=== PATIENT | female | born 1970 | race Caucasian/White ===

== ENCOUNTER 2017-01-27 07:24 | Day surgery (SDC) | payer MEDICAID ==
[~2017-01-27 07:24] MED LIST: Lactated Ringers 1,000 ML IV SCH; Lidocaine 1%/Sod Bicarbonate in NS 8.4% 1 ML Syringe IV PRN; Sodium Chloride 0.9% 10 ML Syringe FLUSH PRN
[2017-01-27] MEDS ORDERED: Scopolamine 1.5 MG Transdermal Patch TOP ONE (07:46)
[2017-01-27] MEDS ORDERED: Propofol 200 MG/20 ML SDV ONE ×3 (07:54→08:48)
[2017-01-27] MEDS ORDERED: Rocuronium 50 MG/5 ML Vial ONE (07:54)
[2017-01-27] MEDS ORDERED: Ondansetron 4 MG/2 ML SDV ONE (07:54)
[2017-01-27] MEDS ORDERED: Midazolam 1 MG/ML 2 ML SDV ONE (07:54)
[2017-01-27] MEDS ORDERED: fentaNYL 250 MCG/5 ML SDV ONE ×2 (07:54→09:12)
[2017-01-27] MEDS ORDERED: Lidocaine 1% 4 ML ONE (07:54)
[2017-01-27] MEDS ORDERED: diphenhydrAMINE 50 MG/ML SDV ONE (07:55)
[2017-01-27] MEDS ORDERED: Ketorolac 30 MG/ML SDV ONE (07:55)
[2017-01-27] MEDS ORDERED: Dexamethasone 4 MG/ML 5 ML MDV ONE (07:55)
[2017-01-27] MEDS ORDERED: Lidocaine 1% with EPINEPHrine 1:100,000 20 ML MDV ONE (07:55)
[2017-01-27] MEDS ORDERED: Bupivacaine 0.5% 30 ML SDV ONE (07:55)
[2017-01-27] MEDS ORDERED: Sodium Chloride 0.9% 50 ML SDV ONE (07:55)
[2017-01-27] MEDS ORDERED: ceFAZolin 1 GM Vial ONE (08:02)
--- NOTE | 2017-01-27 08:03 | PCM.PREANE ---
Preanesthetic Assessment - Anesthesia/Transfusion/Family Hx Anesthesia History: Prior Anesthesia Reaction Type of Anesthesia Reaction: Excessive Nausea/Vomiting, Other (see below) (slow wake up Pt is not aware of any MH history) Family History of Anesthesia Reaction: No Transfusion History: No Prior Transfusion(s) - Review of Systems General: No Symptoms Pulmonary: No Symptoms Cardiovascular: No Symptoms Gastrointestinal: No symptoms Neurological: No Symptoms Other: Reports: Easy Bruising, Diabetes - Physical Assessment NPO Status Date: 01/26/17 NPO Status Time: 22:30 Pulse: 82 O2 Sat by Pulse Oximetry: 97 Respiratory Rate: 16 Blood Pressure: 132/83 Temperature: 36.8 C Vital Signs: Last Vital Signs Temp 36.8 C 01/27/17 07:40 Pulse 82 01/27/17 07:40 Resp 16 01/27/17 07:40 BP 132/83 01/27/17 07:40 Pulse Ox 97 01/27/17 07:40 Height: 1.8 m Weight: 106.594 kg ASA Class: 2 Mental Status: Alert & Oriented x3 Dentition: Reports: Normal Dentition Thyro-Mental Finger Breadths: 3 Mouth Opening Finger Breadths: 3 ROM/Head Extension: Full Lungs: Clear to auscultation, Normal respiratory effort Cardiovascular: Regular Rate, Regular Rhythm, No Murmurs - Lab Values: Laboratory Last Values POC Glucose 110 mg/dL (70-105) H 01/27/17 07:46 Urine HCG, Qual Negative (NEGATIVE) 01/27/17 07:35 - Allergies Allergies/Adverse Reactions: Allergies Allergy/AdvReac Type Severity Reaction Status Date / Time fluconazole [From Diflucan] Allergy Cannot Verified 01/26/17 10:22 Remember latex Allergy Itching Verified 01/26/17 10:22 meperidine [From Demerol] Allergy Cannot Verified 01/26/17 10:22 Remember naproxen [From Aleve] Allergy Cannot Verified 01/26/17 10:22 Remember iv dye Allergy Cannot Uncoded 01/26/17 10:22 Remember - Anesthesia Plan Pre-Op Medication Ordered: None - Acknowledgements Anesthesia Type Planned: General Anesthesia Pt an Appropriate Candidate for the Planned Anesthesia: Yes Alternatives and Risks of Anesthesia Discussed w Pt/Guardian: Yes Pt/Guardian Understands and Agrees with Anesthesia Plan: Yes PreAnesthesia Questionnaire HEENT History: Reports: Impaired vision, Other (see below) Other HEENT History: WEARS GLASSES Cardiovascular History: Reports: None Respiratory History: Reports: None Gastrointestinal History: Reports: Irritable bowel syndrome Genitourinary History: Reports: Renal calculus, Other (see below) Other Genitourinary History: 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: , Other (see below) Other OB/BYN History: DYSPAREUNIA, DYSMENORRHEA, LAPAROSCOPY X2, ESSURE PROCEDURE, ADENOMYOSIS, IRREGULAR MENSES, PELVIC PAIN Musculoskeletal History: Reports: Fibromyalgia, Other (see below) Other Musculoskeletal History: R ELBOW FRACTURE, BILATERAL ARM FRACTURES, KNEE ARTHROSCOPY L AND R X2, PATELLAR RECONSTRUCTION Neurological History: Reports: Neuropathy, diabetic, Seizure Psychiatric History: Reports: Depression Endocrine/Metabolic History: Reports: Diabetes, gestational, Diabetes, type II Hematologic History: Reports: None Immunologic History: Reports: None Oncologic (Cancer) History: Reports: None Dermatologic History: Reports: None - Past Surgical History HEENT Surgical History: Reports: Tonsillectomy GI Surgical History: Reports: Colonoscopy, EGD Female Surgical History: Reports: section Musculoskeletal Surgical History: Reports: Arthroscopic knee, Arthroscopic procedure - SUBSTANCE USE Smoking Status *Q: Former Smoker Tobacco Use Within Last Twelve Months: No Second Hand Smoke Exposure: Yes Days Per Week of Alcohol Use: 0 Number of Drinks Per Day: 0 Total Drinks Per Week: 0 Recreational Drug Use History: No - HOME MEDS Home Medications: Home Meds Chlorzoxazone [Parafon Forte] 500 mg PO BID 01/26/17 [History] Gabapentin [Gabapentin] 800 mg PO BID 01/26/17 [History] Insulin Aspart [NovoLOG] 1 unit SQ TIDAC 01/26/17 [History] Insulin Glarg,Human.Rec.Analog [LantUS Solostar] 45 units SQ BID 01/26/17 [ History] Ondansetron [Zofran Odt] 8 mg PO TID PRN 01/26/17 [History] metFORMIN HCl [Metformin HCl ER] 1,000 mg PO BEDTIME 01/26/17 [History] - CURRENT (IN HOUSE) MEDS Current Meds: Current Medications Lactated Ringer's (Ringers, Lactated) 1,000 mls @ 125 mls/hr IV ASDIRECTED ASHA Stop: 01/27/17 23:00 Lidocaine/Sodium Bicarbonate (Buffered Lidocaine 1% In Ns 8.4%) 0.25 ml IV ONETIME PRN PRN Reason: Prior to IV Start Stop: 01/27/17 18:00 Sodium Chloride (Saline Flush) 10 ml FLUSH ASDIRECTED PRN PRN Reason: Keep Vein Open Stop: 01/27/17 18:00 Discontinued Medications Cefazolin Sodium (Ancef) Confirm Administered Dose 2 gm .ROUTE .STK-MED ONE Stop: 01/27/17 08:03 Dexamethasone (Dexamethasone) Confirm Administered Dose 20 mg .ROUTE .STK-MED ONE Stop: 01/27/17 07:56 Diphenhydramine HCl (Benadryl) Confirm Administered Dose 50 mg .ROUTE .STK-MED ONE Stop: 01/27/17 07:56 Fentanyl (Sublimaze) Confirm Administered Dose 250 mcg .ROUTE .STK-MED ONE Stop: 01/27/17 07:55 Lidocaine HCl (Xylocaine-Mpf 1%) Confirm Administered Dose 4 mls @ as directed .ROUTE .STK-MED ONE Stop: 01/27/17 07:55 Ketorolac Tromethamine (Toradol) Confirm Administered Dose 30 mg .ROUTE .STK- MED ONE Stop: 01/27/17 07:56 Midazolam HCl (Versed 1 Mg/Ml) Confirm Administered Dose 2 mg .ROUTE .STK-MED ONE Stop: 01/27/17 07:55 Ondansetron HCl (Zofran) Confirm Administered Dose 4 mg .ROUTE .STK-MED ONE Stop: 01/27/17 07:55 Propofol (Diprivan 20 Ml) Confirm Administered Dose 200 mg .ROUTE .STK-MED ONE Stop: 01/27/17 07:55 Rocuronium Ewing (Zemuron) Confirm Administered Dose 50 mg .ROUTE .STK-MED ONE Stop: 01/27/17 07:55 Scopolamine (Transderm-Scop) 1.5 mg TOP ONETIME ONE Stop: 01/27/17 07:47 Preanesthetic Assessment - PHYSICAL ASSESSMENT O2 Sat by Pulse Oximetry: 97 RR: 16 Vital Signs: Last Vital Signs Temp 36.8 C 01/27/17 07:40 Pulse 82 01/27/17 07:40 Resp 16 01/27/17 07:40 BP 132/83 01/27/17 07:40 Pulse Ox 97 01/27/17 07:40 Height: 1.8 m Weight: 106.594 kg NPO Status Date: 01/26/17 NPO Status Time: 22:30 - LAB Values: Laboratory Last Values POC Glucose 110 mg/dL (70-105) H 01/27/17 07:46 Urine HCG, Qual Negative (NEGATIVE) 01/27/17 07:35 - ALLERGIES Allergies/Adverse Reactions: Allergies Allergy/AdvReac Type Severity Reaction Status Date / Time fluconazole [From Diflucan] Allergy Cannot Verified 01/26/17 10:22 Remember latex Allergy Itching Verified 01/26/17 10:22 meperidine [From Demerol] Allergy Cannot Verified 01/26/17 10:22 Remember naproxen [From Aleve] Allergy Cannot Verified 01/26/17 10:22 Remember iv dye Allergy Cannot Uncoded 01/26/17 10:22 Remember
[2017-01-27] MEDS ORDERED: HYDROmorphone 1 MG/ML Syringe ONE (08:56)
[2017-01-27] MEDS ORDERED: Lactated Ringers 1,000 ML ONE (09:11)
[2017-01-27] MEDS ORDERED: Ondansetron 4 MG/2 ML SDV IVPUSH PRN (09:18)
[2017-01-27] MEDS ORDERED: Acetaminophen/oxyCODONE 325-5 MG Tab PO PRN (09:18)
--- NOTE | 2017-01-27 09:24 | PCM.OPNOTE ---
- General Post-Op/Procedure Note Date of Surgery/Procedure: 01/27/17 Operative Procedure(s): Total vaginal hysterectomy bilateral salpingectomy Findings: Uterus is upper limits normal size, ovaries appeared normal bilaterally. Patient had a essure devices in each fallopian tube. Fallopian tubes otherwise appeared normal. Pre Op Diagnosis: Dysmenorrhea, dyspareunia, pelvic pain Post-Op Diagnosis: Same Anesthesia Technique: General ET tube Other Anesthesia Type: Lidocaine quarter percent with epinephrine-20 cc locally Primary Surgeon: Jamal Paula Secondary Surgeon: Whitney Peralta Anesthesia Provider: Kt Ramey Dryland Farmer: Zulma Jimenez Pathology: Uterus, bilateral fallopian tubes sent in one container. Fluid Replacement, Intraop: 1,500 EBL in mLs: 30 Complications: None Condition: Good Free Text/Narrative:: Surgery duration: 25 minutes Complications: None Condition: Good Procedure: The patient was taken to the operating room. She was placed in supine position on the operating table. General endotracheal anesthesia and was accomplished. Patient was given Ancef 2 g IV preop for infection prophylaxis and had sequential compression stockings in place for DVT prophylaxis. After positioning prep and drape were accomplished in a routine fashion. The patient was then operated upon. Sterile weighted speculum was placed in the vagina and cervix was visualized. Cervix was injected with lidocaine quarter percent with epinephrine-20 cc total. A full circumference incision was made through the cervical epithelium and cervical epithelium was pushed well back off the cervix. Posterior cul-de-sac was entered sharply. The left uterosacral ligament was then crossclamped with a LigaSure vessel closure system. This is developed in routine fashion. Same was done on the right side. Anterior cul-de-sac was then entered without problems. The uterine vasculature, remainder of cardinal ligament, broad ligament and eventually fallopian tube and upper broad ligament pedicles were then developed using LigaSure vessel closure system. At this time the fallopian tube on the left side was isolated and using LigaSure vessel closure system meso-salpinx was cauterized. This effectively removed the fallopian tube, leaving the ovary in place. Same was then done on the side. Hemostasis was confirmed at this time. Sponge instrument and needle counts are correct. The pursestring suture of 0 Monocryl was then used to close the peritoneal cavity. The vaginal cuff was closed with a running locked suture from right side to left side with 0 Monocryl suture. At this time hemostasis confirmed. Sponge, instrument and needle counts were correct. The patient was returned to supine position and awakened from general endotracheal anesthesia. She tolerated the procedure well and left the operating room in good condition.
--- NOTE | 2017-01-27 09:30 | PCM.POSTAN ---
POST ANESTHESIA ASSESSMENT - MENTAL STATUS Mental Status: alert, oriented - VITAL SIGNS Pulse Rate: 91 SaO2: 99 Resp Rate: 14 Blood Pressure: 113/45 Temperature: 36.1 C - RESPIRATORY Respiratory Status: respiratory rate WNL, airway patent, O2 saturation stable - CARDIOVASCULAR CV Status: pulse rate WNL, blood pressure stable - GASTROINTESTINAL GI Status: no symptoms - PAIN Pain Score: 0 - POST OP HYDRATION Hydration Status: adequate & stable - OBSERVATIONS Free Text/Narrative:: no anesthesia complications noted
[2017-01-27] MEDS: HYDROmorphone 0.5 MG/0.5 ML Syringe IVPUSH PRN ×2 (09:55→10:10)
[2017-01-27] MEDS ORDERED: diphenhydrAMINE 50 MG/ML SDV IVPUSH SCH (10:15)
[2017-01-27] MEDS ORDERED: fentaNYL 100 MCG/2 ML SDV IVPUSH PRN (10:30)
[2017-01-27 11:32] VITALS: BP 120/61
== END 2017-01-27 12:00 | disposition home or self-care (01) ==
LOC: JD.SDS 07:24
PROVIDERS: ATTEND Obstetrics & Gynecology
DX: N72 Inflammatory disease of cervix uteri (principal); N83.8 Other noninflammatory disorders of ovary, fallopian tube and broad ligament; N85.8 Other specified noninflammatory disorders of uterus; F32.9 Major depressive disorder, single episode, unspecified; E11.9 Type 2 diabetes mellitus without complications; Z88.8 Allergy status to other drugs, medicaments and biological substances; Z91.040 Latex allergy status; Z91.041 Radiographic dye allergy status; Z79.899 Other long term (current) drug therapy; Z98.890 Other specified postprocedural states; Z96.659 Presence of unspecified artificial knee joint; Z87.891 Personal history of nicotine dependence
CPT/HCPCS: 36415; 58262; 81025; 82962; 86850; 86900; 86901; A9270; J0690; J1100; J1170; J1200; J1885; J2250; J2405; J3010; J7120; 00944; J2704

== ENCOUNTER 2017-02-01 00:30 | Inpatient (IN) | payer MEDICAID, SELFPAY ==
[~2017-02-01 00:30] MED LIST changes: +Dextrose 5%-0.45% NaCl 1,000 ML IV SCH; -Lactated Ringers 1,000 ML IV SCH; -Lidocaine 1%/Sod Bicarbonate in NS 8.4% 1 ML Syringe IV PRN; -Sodium Chloride 0.9% 10 ML Syringe FLUSH PRN
--- NOTE | 2017-02-01 00:53 | EDM.PDOC ---
ED HPI GI/ABDOMINAL - General Chief Complaint: Abdominal Pain Stated Complaint: [facility] Time Seen by Provider: 02/01/17 00:43 - History of Present Illness INITIAL COMMENTS - FREE TEXT/NARRATIVE: 46-year-old female brought in by [facility] as a transfer from the [facility] and [place]. Chief complaint: Abdominal pain Patient developed severe abdominal pain early on Thursday. She has a significant history of having a vaginal hysterectomy on Thursday of this last week at this hospital. The patient has had mild spotting after the surgery and has had some pain that has been fairly well controlled. Today the pain has been poorly controlled she presented to the [facility] and [place] with severe pain. The patient received 4 mg of morphine and Andrew followed by 22 mg doses of Dilaudid without pain relief. CAT scan examination without contrast do to IV allergy was unremarkable other than postop changes. Laboratory evaluation is unrevealing except for a minimally elevated white count. The patient has multiple medical problems. - Related Data Allergies/ADRs: Allergies Allergy/AdvReac Type Severity Reaction Status Date / Time fluconazole [From Diflucan] Allergy Cannot Verified 01/26/17 10:22 Remember latex Allergy Itching Verified 01/26/17 10:22 meperidine [From Demerol] Allergy Cannot Verified 01/26/17 10:22 Remember naproxen [From Aleve] Allergy Cannot Verified 01/26/17 10:22 Remember iv dye Allergy Cannot Uncoded 01/26/17 10:22 Remember Home Meds: Home Meds Chlorzoxazone [Parafon Forte] 500 mg PO BID 01/26/17 [History] Gabapentin 800 mg PO BID 01/26/17 [History] Insulin Aspart [NovoLOG] 1 unit SQ TIDAC 01/26/17 [History] Insulin Glarg,Human.Rec.Analog [LantUS Solostar] 45 units SQ BID 01/26/17 [ History] Ondansetron [Zofran Odt] 8 mg PO TID PRN 01/26/17 [History] metFORMIN HCl [Metformin HCl ER] 1,000 mg PO BEDTIME 01/26/17 [History] Acetaminophen/oxyCODONE [Percocet 325-5 MG] 2 tab PO Q4H PRN #30 tablet [Rx] Ibuprofen 600 mg PO Q4HR #30 tablet 01/27/17 [Rx] Past Medical History HEENT History: Reports: Impaired vision, Other (see below) Other HEENT History: WEARS GLASSES Cardiovascular History: Reports: None Respiratory History: Reports: None Gastrointestinal History: Reports: Irritable bowel syndrome Genitourinary History: Reports: Renal calculus, Other (see below) Other Genitourinary History: 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: , Other (see below) Other OB/BYN History: DYSPAREUNIA, DYSMENORRHEA, LAPAROSCOPY X2, ESSURE PROCEDURE, ADENOMYOSIS, IRREGULAR MENSES, PELVIC PAIN Musculoskeletal History: Reports: Fibromyalgia, Other (see below) Other Musculoskeletal History: R ELBOW FRACTURE, BILATERAL ARM FRACTURES, KNEE ARTHROSCOPY L AND R X2, PATELLAR RECONSTRUCTION Neurological History: Reports: Neuropathy, diabetic, Seizure Psychiatric History: Reports: Depression Endocrine/Metabolic History: Reports: Diabetes, gestational, Diabetes, type II Hematologic History: Reports: None Immunologic History: Reports: None Oncologic (Cancer) History: Reports: None Dermatologic History: Reports: None - Past Surgical History HEENT Surgical History: Reports: Tonsillectomy GI Surgical History: Reports: Colonoscopy, EGD Female Surgical History: Reports: section, Hysterectomy Musculoskeletal Surgical History: Reports: Arthroscopic knee, Arthroscopic procedure Social & Family History - Tobacco Use Smoking Status *Q: Former Smoker Month Tobacco Last Used: 2006 Second Hand Smoke Exposure: Yes - Alcohol Use Days Per Week of Alcohol Use: 0 Number of Drinks Per Day: 0 Total Drinks Per Week: 0 - Recreational Drug Use Recreational Drug Use: Yes Drug Use in Last 12 Months: No Recreational Drug Type: Reports: Marijuana/Hashish Recreational Drug Use Frequency: Not Used In Over 3 Months ED ROS GENERAL - Review of Systems Review Of Systems: See Below Constitutional: Denies: fever, chills Respiratory: Reports: No Symptoms Cardiovascular: Reports: No symptoms GI/Abdominal: Reports: Abdominal pain, Nausea. Denies: Constipation, Diarrhea : Reports: other (Small amount of vaginal bleeding otherwise no burning or frequency with urination) Musculoskeletal: Reports: no symptoms Skin: Reports: no symptoms Neurological: Reports: No Symptoms ED EXAM, GI/ABD - Physical Exam Exam: See Below Exam Limited By: No limitations General Appearance: alert, mild distress (From the pain but the patient seems to be doing okay at this time) Head: atraumatic, normocephalic Neck: normal inspection, supple, non-tender, full range of motion. No: lymphadenopathy (L), lymphadenopathy (R) Respiratory/Chest: no respiratory distress, lungs clear, normal breath sounds Cardiovascular: regular rate, rhythm, no edema, no murmur GI/Abdominal: normal bowel sounds, soft, other (She has right-sided abdominal pain and some mild left-sided lower quadrant discomfort she has expected suprapubic discomfort her) (Female) Exam: Normal external exam, Other (Economic exam is done cervix surgically absent barely visualized the closure site not a complete exam but it appears to be intact.) Back Exam: normal inspection. No: CVA tenderness (L), CVA tenderness (R) Extremities: normal inspection Course - Vital Signs Last Recorded V/S: Last Vital Signs Temp 37.1 C 02/01/17 03:35 Pulse 81 02/01/17 03:35 Resp 20 02/01/17 03:35 BP 117/73 02/01/17 03:35 Pulse Ox 96 02/01/17 03:35 - Orders/Labs/Meds Orders: Medication Orders Hydromorphone HCl (Dilaudid) 0.2 mg IVPUSH Q2H PRN PRN Reason: Pain (severe 7-10) Last Admin: 02/01/17 05:22 Dose: 0.2 mg Admin: 02/01/17 03:21 Dose: 0.2 mg Sodium Chloride (Normal Saline) 1,000 mls @ 125 mls/hr IV ASDIRECTED [facility] Last Admin: 02/01/17 03:28 Dose: 125 mls/hr Dextrose/Sodium Chloride (Dextrose 5%-1/2 Ns) 1,000 mls @ 125 mls/hr IV ASDIRECTED [facility] Last Admin: 02/01/17 06:35 Dose: 125 mls/hr Ondansetron HCl (Zofran) 4 mg IVPUSH Q8H PRN PRN Reason: Nausea/Vomiting Last Admin: 02/01/17 03:25 Dose: 4 mg Labs: Laboratory Tests 02/01/17 02/01/17 Range/Units 00:53 01:38 POC Glucose 61 L 78 (70-105) mg/dL Meds: Medications Generic Name Dose Route Start Last Admin Trade Name Freq PRN Reason Stop Dose Admin Hydromorphone HCl 0.2 mg 02/01/17 02:59 04/02/17 05:22 Dilaudid IVPUSH 0.2 mg Q2H PRN Administration Pain (severe 7-10) Sodium Chloride 1,000 mls @ 125 mls/hr 02/01/17 03:15 02/01/17 03:28 Normal Saline IV 125 mls/hr ASDIRECTED ASHA Administration Dextrose/Sodium Chloride 1,000 mls @ 125 mls/hr 02/01/17 06:30 02/01/17 06:35 Dextrose 5%-1/2 Ns IV 125 mls/hr ASDIRECTED ASHA Administration Ondansetron HCl 4 mg 02/01/17 02:59 02/01/17 03:25 Zofran IVPUSH 4 mg Q8H PRN Administration Nausea/Vomiting Discontinued Medications Generic Name Dose Route Start Last Admin Trade Name Freq PRN Reason Stop Dose Admin Fentanyl 50 mcg 02/01/17 01:16 02/01/17 01:58 Sublimaze IVPUSH 02/01/17 01:17 50 mcg ONETIME ONE Administration Dextrose/Sodium Chloride 1,000 mls @ 125 mls/hr 02/01/17 00:30 Dextrose 5%-1/2 Ns IV ASDIRECTED ASHA Ondansetron HCl 4 mg 02/01/17 01:16 02/01/17 01:30 Zofran IVPUSH 02/01/17 01:17 4 mg ONETIME ONE Administration - Re-Assessments/Exams Free Text/Narrative Re-Assessment/Exam: 02/01/17 01:23 Chart reviewed labs nonrevealing abdominal CT without contrast was done which shows a left-sided to centimeter ovarian cyst otherwise no acute changes post surgical changes noted. Exam reveals right-sided vague abdominal discomfort that tends to radiate into her pelvis. Pelvic exam nonrevealing suture line with difficulty was partially visualized small amount of clot small amount of bleeding noted. Case discussed with Dr. Peralta who will come in and evaluate the patient. Departure - Departure Time of Disposition: 01:30 Disposition: Admitted As Inpatient 68 Clinical Impression: Abdominal pain, History of hysterectomy
[2017-02-01] MEDS ORDERED: fentaNYL 100 MCG/2 ML SDV IVPUSH ONE ×2 (01:16→22:30)
[2017-02-01] MEDS ORDERED: Ondansetron 4 MG/2 ML SDV IVPUSH ONE (01:16)
[2017-02-01] MEDS ORDERED: Sodium Chloride 0.9% 1,000 ML IV SCH (03:15)
[2017-02-01] MEDS: HYDROmorphone 0.5 MG/0.5 ML Syringe IVPUSH PRN ×3 (03:21→07:53)
[2017-02-01] MEDS: Ondansetron 4 MG/2 ML SDV IVPUSH PRN ×3 (03:25→22:41)
--- NOTE | 2017-02-01 03:45 | PCM.HP ---
H&P History of Present Illness - General Date of Service: 02/01/17 Admit Problem/Dx: Admission Diagnosis/Problem Admission Diagnosis/Problem Postoperative pain Source of Information: Patient, EMS notes reviewed, Provider, RN notes reviewed (from [place]) History Limitations: Reports: Other (Screaming in pain) - History of Present Illness Initial Comments - Free Text/Narative: 46 year old female who underwent an uncomplicated laparoscopic assisted vaginal hysterectomy on Thursday01.27.[address] Paula with myself assisting. This was for an indication of pelvic pain and irregular bleeding that she attributed to her Essure coils. 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 She then took transit home. Says she called from the vehicle on the way to [place] with significant pain and was asked to "breath through it and call back in the morning". She then reports she called back the next morning with continued pain and was told to hang in there and alternate her ibuprofen and percocet. She states that initial postop pain was dull and achy. It bothered her but the meds helped. She had her first bowel movement (POD2). It was soft as she has been taking stool softeners. Normal BMs since. Has been passing gas normally with no issue. Thursday01.31.17 she states she woke up with some increased nausea. Did not have much appetite but drank a cup of coffee and ate a doughnut and a doughnut hole. She then did some walking and thinks she may have overdone it some. But then she began having different pain throughout the day. It was primarily sharp, right upper quadrant pain that came and went and occasionally passed to her flank. It was always associated with nausea. It felt identical to her pain when she had a ureteral stone in 2005. She presented to the ED in [place] where she received dilaudid, toradol and morphine for pain. The ER notes state that she was screaming in pain after walkin some distance across the parking lot into the ER "despite being her frequently and knowing she can be dropped off up at the door". She was admitted to observation there for pain managment. Shortly thereafter she had intractable pain and was transferred to the emergency department here. [place] labs were reviewed and normal to include a CBC and CMP. She had a non-contrast CT as she is allergic to IV dye that was normal. No abscess. Normal postop changes. Here in the ER her pain was initially "25/10" then after 50 mg fentanyl it was 12/10. Onset of Symptoms: Reports: today Symptom Onset Date: 01/31/17 Duration of Symptoms: Reports: Getting worse Location: Reports: abdomen (right upper quadrent and flank, some diffuse) Quality: Reports: Same as previous episode (similar to her ureteral stone in 2005), Sharp Improves with: Reports: None Worsens with: Reports: None Context: Reports: exertion (worse with walking) Associated Symptoms: Reports: nausea/vomiting Upper Abdomen Pain Score (Numeric/FACES): 7 - Related Data Allergies/Adverse Reactions: Allergies Allergy/AdvReac Type Severity Reaction Status Date / Time fluconazole [From Diflucan] Allergy Cannot Verified 01/26/17 10:22 Remember latex Allergy Itching Verified 01/26/17 10:22 meperidine [From Demerol] Allergy Cannot Verified 01/26/17 10:22 Remember naproxen [From Aleve] Allergy Cannot Verified 01/26/17 10:22 Remember iv dye Allergy Cannot Uncoded 01/26/17 10:22 Remember Home Medications: Home Meds Chlorzoxazone [Parafon Forte] 500 mg PO BID 01/26/17 [History] Gabapentin 800 mg PO BID 01/26/17 [History] Insulin Aspart [NovoLOG] 1 unit SQ TIDAC 01/26/17 [History] Insulin Glarg,Human.Rec.Analog [LantUS Solostar] 45 units SQ BID 01/26/17 [ History] Ondansetron [Zofran Odt] 8 mg PO TID PRN 01/26/17 [History] metFORMIN HCl [Metformin HCl ER] 1,000 mg PO BEDTIME 01/26/17 [History] Acetaminophen/oxyCODONE [Percocet 325-5 MG] 2 tab PO Q4H PRN #30 tablet [Rx] Ibuprofen 600 mg PO Q4HR #30 tablet 01/27/17 [Rx] Past Medical History HEENT History: Reports: Impaired vision, Other (see below) Other HEENT History: WEARS GLASSES Cardiovascular History: Reports: None Respiratory History: Reports: None Gastrointestinal History: Reports: Irritable bowel syndrome Genitourinary History: Reports: Renal calculus, Other (see below) Other Genitourinary History: 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: , Other (see below) Other OB/BYN History: DYSPAREUNIA, DYSMENORRHEA, LAPAROSCOPY X2, ESSURE PROCEDURE, ADENOMYOSIS, IRREGULAR MENSES, PELVIC PAIN Musculoskeletal History: Reports: Fibromyalgia, Other (see below) Other Musculoskeletal History: R ELBOW FRACTURE, BILATERAL ARM FRACTURES, KNEE ARTHROSCOPY L AND R X2, PATELLAR RECONSTRUCTION Neurological History: Reports: Neuropathy, diabetic, Seizure Psychiatric History: Reports: Depression Endocrine/Metabolic History: Reports: Diabetes, gestational, Diabetes, type II Hematologic History: Reports: None Immunologic History: Reports: None Oncologic (Cancer) History: Reports: None Dermatologic History: Reports: None - Past Surgical History HEENT Surgical History: Reports: Tonsillectomy GI Surgical History: Reports: Colonoscopy, EGD Female Surgical History: Reports: section, Hysterectomy, Kidney stone extraction (unable to fully describe but surgery for ureteral stone, no stent), Other (see below) (l/s x2 for pelvic pain, essure 2007) Musculoskeletal Surgical History: Reports: Arthroscopic knee (x2), Arthroscopic procedure, Knee replacement, Other (see below) (right arm fracture surgery) Other Surgical History Comment: 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 however 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 - Past Imaging History Past Imaging History: Reports: CAT scan Social & Family History - Tobacco Use Smoking Status *Q: Former Smoker Month Tobacco Last Used: 2006 Second Hand Smoke Exposure: Yes - Alcohol Use Days Per Week of Alcohol Use: 0 Number of Drinks Per Day: 0 Total Drinks Per Week: 0 - Recreational Drug Use Recreational Drug Use: Yes Drug Use in Last 12 Months: No Recreational Drug Type: Reports: Marijuana/Hashish Recreational Drug Use Frequency: Not Used In Over 3 Months - Living Situation & Occupation Living situation: Reports: Social History Comment: reports no family other than who "doesn't know the way here and didn't come for my hysterectomy" is a [employer] TE[employer]. H&P Review of Systems - Review of Systems: Review Of Systems: See Below General: Reports: no symptoms HEENT: Reports: no symptoms Pulmonary: Reports: No Symptoms Cardiovascular: Reports: no symptoms Gastrointestinal: Reports: Abdominal pain, Nausea. Denies: Constipation, Diarrhea Genitourinary: Denies: dysuria, frequency Musculoskeletal: Reports: no symptoms Skin: Reports: no symptoms Psychiatric: Reports: no symptoms Neurological: Reports: No Symptoms Hematologic/Lymphatic: Reports: no symptoms Immunologic: Reports: no symptoms Exam - Exam Exam: See Below - Vital Signs Vital Signs: Last Vital Signs Temp 36.2 C 02/01/17 00:32 Pulse 67 02/01/17 00:32 Resp 20 02/01/17 00:32 BP 113/64 02/01/17 00:32 Pulse Ox 98 02/01/17 00:32 Weight: 111.13 kg - Exam General: alert, oriented, cooperative, moderate distress, other (appears older than her stated age, screaming and sobbing, worse after walking) HEENT: Conjunctiva clear, EACs clear, EOMI, Hearing intact, Mucosa moist & pink , PERRLA Neck: supple, trachea midline, 2 Lungs: Clear to auscultation, Normal respiratory effort Cardiovascular: regular rate, regular rhythm Abdomen: normal bowel sounds, soft, tenderness, Jenkins's sign, other (right flank tenderness) (Female) Exam: Normal external exam, Normal speculum exam, Other (cuff appears normal, at most 5 ml old blood in vault, no suprapubic tenderness, ) Back Exam: normal inspection Extremities: 3, normal inspection, 10 Skin: warm, dry, intact Neurological: normal gait Neuro Extensive - Mental Status: alert, oriented x3, normal mood/affect, normal cognition Neuro Extensive - Motor, Sensory, Reflexes: normal gait, normal reflexes Psychiatric: alert, normal affect, normal mood - Patient Data Imaging Impressions last 24 hrs: Reviewed CT. *Q Meaningful Use (ADM) - VTE *Q VTE Criteria *Q: - Stroke *Q Stroke Criteria *Q: - AMI *Q AMI Criteria *Q: - Problem List (1) Postoperative pain SNOMED Code(s): 340482877 ICD Code: G89.18 - OTHER ACUTE POSTPROCEDURAL PAIN Status: Acute Current Visit: Yes (2) Type 2 diabetes mellitus SNOMED Code(s): 47553970 ICD Code: E11.9 - TYPE 2 DIABETES MELLITUS WITHOUT COMPLICATIONS Status: Acute Current Visit: Yes (3) Right upper quadrant abdominal pain SNOMED Code(s): 139581969 ICD Code: R10.11 - RIGHT UPPER QUADRANT PAIN Status: Acute Current Visit : Yes (4) History of kidney stones SNOMED Code(s): 630949172 ICD Code: Z87.442 - PERSONAL HISTORY OF URINARY CALCULI Status: Acute Current Visit: Yes Problem List Initiated/Reviewed/Updated: Yes Orders Last 24hrs: Active Orders 24 hr Category Date Time Status Strain Urine [RC] BID Care 02/01/17 03:05 Active Sodium Chloride 0.9% [Normal Saline] 1,000 ml Med 02/01/17 03:15 Active IV ASDIRECTED Medication Orders Hydromorphone HCl (Dilaudid) 0.2 mg IVPUSH Q2H PRN PRN Reason: Pain (severe 7-10) Last Admin: 02/01/17 03:21 Dose: 0.2 mg Sodium Chloride (Normal Saline) 1,000 mls @ 125 mls/hr IV ASDIRECTED ASHA Ondansetron HCl (Zofran) 4 mg IVPUSH Q8H PRN PRN Reason: Nausea/Vomiting Assessment/Plan Comment:: POD5 from uncomplicated LAVH now with significant pain. Imaging normal. Pain character has actually changed fairly significantly since her initial postoperative day or two. Today it is primarily right upper quadrant and some flank pain. Seem however worse after ambulating. She is very uncomfortable and will need to be admitted for further evaluation and pain control. -repeat labs in AM -consult general surgery for input and possible gall bladder dysfunction -keep NPO in event would need abd u/s -could consider repeat CT with contrast with pre medication as her reaction to IV dye is only mild itching -blood sugars q 4 hours -consider consult of hospitalist in AM for diabetes management -strain urine
[2017-02-01] MEDS ORDERED: Dextrose 5%-0.45% NaCl 1,000 ML IV SCH (06:30)
[2017-02-01] MEDS ORDERED: Ketorolac 15 MG/ML SDV IVPUSH ONE (08:32)
[2017-02-01] MEDS ORDERED: Ketorolac 30 MG/ML SDV ONE (08:33)
[2017-02-01] MEDS ORDERED: methylPREDNISolone Sodium Succinate 125 MG/2 ML SDV IVPUSH ONE (08:59)
[2017-02-01] MEDS ORDERED: diphenhydrAMINE 50 MG/ML SDV IVPUSH ONE (09:01)
[2017-02-01] MEDS ORDERED: diphenhydrAMINE 50 MG/ML SDV ONE (09:03)
--- NOTE | 2017-02-01 09:06 | PCM.CONS ---
H&P History of Present Illness - General Date of Service: 02/01/17 Admit Problem/Dx: Abdominal pain of uncertain etiology Source of Information: Patient, Old records, Provider - History of Present Illness Initial Comments - Free Text/Narative: 46 yo woman s/p vaginal hysterectomy on Thursday with Dr. Paula Transferred from [place] overnight and admitted by Dr. Peralta Had "normal" post-operative pain until Sat Sat awoke with severe RUQ pain, cramping, traveling down and towards bladder Crescendo/decrescendo, only relieved with large doses of Dilaudid Feels "exactly the same" as when she had a kidney stone in [place] She did require surgery at that time and stone was dx with IVP only and was not seen on CT per her report Labs are unremarkable, mild leukocytosis (12) but no left shift, LFTs unremarkable, UA unremarkable CT non-contrast in [place] personally reviewed - post-op change around cuff, phleboliths. Some nausea and chills when pain is bad, otherwise eating without difficulty Has had BM since surgery No association of pain with eating Denies hx of elevated serum calcium or previous testing for parathyroid adenoma Improves with: Reports: None Worsens with: Reports: None Associated Symptoms: Reports: no other symptoms Upper Abdomen Pain Score (Numeric/FACES): 7 - Related Data Allergies/Adverse Reactions: Allergies Allergy/AdvReac Type Severity Reaction Status Date / Time fluconazole [From Diflucan] Allergy Cannot Verified 01/26/17 10:22 Remember latex Allergy Itching Verified 01/26/17 10:22 meperidine [From Demerol] Allergy Cannot Verified 01/26/17 10:22 Remember naproxen [From Aleve] Allergy Cannot Verified 01/26/17 10:22 Remember iv dye Allergy Cannot Uncoded 01/26/17 10:22 Remember Home Medications: Home Meds Chlorzoxazone [Parafon Forte] 500 mg PO BID 01/26/17 [History] Gabapentin 800 mg PO BID 01/26/17 [History] Insulin Aspart [NovoLOG] 1 unit SQ TIDAC 01/26/17 [History] Insulin Glarg,Human.Rec.Analog [LantUS Solostar] 45 units SQ BID 01/26/17 [ History] Ondansetron [Zofran Odt] 8 mg PO TID PRN 01/26/17 [History] metFORMIN HCl [Metformin HCl ER] 1,000 mg PO BEDTIME 01/26/17 [History] Acetaminophen/oxyCODONE [Percocet 325-5 MG] 2 tab PO Q4H PRN #30 tablet [Rx] Ibuprofen 600 mg PO Q4HR #30 tablet 01/27/17 [Rx] Past Medical History HEENT History: Reports: Impaired vision, Other (see below) Other HEENT History: WEARS GLASSES Cardiovascular History: Reports: None Respiratory History: Reports: None Gastrointestinal History: Reports: Irritable bowel syndrome Genitourinary History: Reports: Renal calculus, Other (see below) Other Genitourinary History: 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: , Other (see below) Other OB/BYN History: DYSPAREUNIA, DYSMENORRHEA, LAPAROSCOPY X2, ESSURE PROCEDURE, ADENOMYOSIS, IRREGULAR MENSES, PELVIC PAIN Musculoskeletal History: Reports: Fibromyalgia, Other (see below) Other Musculoskeletal History: R ELBOW FRACTURE, BILATERAL ARM FRACTURES, KNEE ARTHROSCOPY L AND R X2, PATELLAR RECONSTRUCTION Neurological History: Reports: Neuropathy, diabetic, Seizure Psychiatric History: Reports: Depression Endocrine/Metabolic History: Reports: Diabetes, gestational, Diabetes, type II Hematologic History: Reports: None Immunologic History: Reports: None Oncologic (Cancer) History: Reports: None Dermatologic History: Reports: None - Past Surgical History HEENT Surgical History: Reports: Tonsillectomy GI Surgical History: Reports: Colonoscopy, EGD Female Surgical History: Reports: section, Hysterectomy (Vaginal) Musculoskeletal Surgical History: Reports: Arthroscopic knee, Arthroscopic procedure - Past Imaging History Past Imaging History: Reports: CAT scan Social & Family History - Family History Family Medical History: Noncontributory Other Family History: NO family hx of renal stones/parathyroid/thyroid or pituitary disease - Tobacco Use Smoking Status *Q: Former Smoker Used Tobacco, but Quit: Yes Month Tobacco Last Used: 2006 Second Hand Smoke Exposure: Yes - Caffeine Use Caffeine Use: Reports: None - Alcohol Use Days Per Week of Alcohol Use: 0 Number of Drinks Per Day: 0 Total Drinks Per Week: 0 - Recreational Drug Use Recreational Drug Use: Yes Drug Use in Last 12 Months: No Recreational Drug Type: Reports: Marijuana/Hashish Other Recreational Drug Type: last used over three months ago Recreational Drug Use Frequency: Not Used In Over 3 Months - Living Situation & Occupation Living situation: Reports: 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 General: Denies: fever Exam - Exam Exam: See Below - Vital Signs Vital Signs: Last Vital Signs Temp 98.7 F 02/01/17 03:35 Pulse 81 02/01/17 03:35 Resp 20 02/01/17 03:35 BP 117/73 02/01/17 03:35 Pulse Ox 96 02/01/17 03:35 Weight: 245 lb - Exam Quality Assessment: No: supplemental oxygen General: alert, oriented, cooperative, moderate distress HEENT: Conjunctiva clear. No: Scleral icterus Lungs: Clear to auscultation, Normal respiratory effort Cardiovascular: regular rate, regular rhythm Abdomen: soft, guarding (Right side of abdomen ), tenderness (Right side of abdomen ). No: peritoneal signs, distention, rigidity, rebound, hernia, mass Skin: warm, dry, intact Neurological: cranial nerves intact, normal speech. No: focal deficit Neuro Extensive - Mental Status: alert, oriented x3, normal mood/affect, normal cognition Psychiatric: alert, normal affect, normal mood - Patient Data Lab Results last 24 hrs: Laboratory Results - last 24 hr 02/01/17 02/01/17 02/01/17 Range/Units 03:24 05:33 06:23 WBC (3.98-10.04) K/mm3 RBC (3.98-5.22) M/mm3 Hgb (11.2-15.7) gm/L Hct (34.1-44.9) % MCV (79.4-94.8) fl MCH (25.6-32.2) pg MCHC (32.2-35.5) g/dl RDW Std Deviation (36.4-46.3) fL Plt Count (182-369) K/mm3 MPV (9.4-12.3) fl POC Glucose 82 57 L (70-105) mg/dL Urine Color Yellow (Yellow) Urine Appearance Clear (Clear) Urine pH 6.0 (5.0-8.0) Ur Specific [place] 1.015 (1.005-1.030) Urine Protein Negative (Negative) Urine Glucose (UA) Negative (Negative) Urine Ketones Negative (Negative) Urine Occult Blood 3+ H (Negative) Urine Nitrite Negative (Negative) Urine Bilirubin Negative (Negative) Urine Urobilinogen 0.2 (0.2-1.0) Ur Leukocyte Esterase Trace H (Negative) Urine RBC 5-10 H (0-5) /hpf Urine WBC 0-5 (0-5) /hpf Ur Epithelial Cells 0-5 (0-5) /hpf Urine Bacteria Few (FEW) /hpf Urine Mucus Not seen (FEW) /hpf 02/01/17 Range/Units 06:55 WBC 12.21 H (3.98-10.04) K/mm3 RBC 4.04 (3.98-5.22) M/mm3 Hgb 12.1 (11.2-15.7) gm/L Hct 36.6 (34.1-44.9) % MCV 90.6 (79.4-94.8) fl MCH 30.0 (25.6-32.2) pg MCHC 33.1 (32.2-35.5) g/dl RDW Std Deviation 44.5 (36.4-46.3) fL Plt Count 203 (182-369) K/mm3 MPV 10.0 (9.4-12.3) fl POC Glucose (70-105) mg/dL Urine Color (Yellow) Urine Appearance (Clear) Urine pH (5.0-8.0) Ur Specific [place] (1.005-1.030) Urine Protein (Negative) Urine Glucose (UA) (Negative) Urine Ketones (Negative) Urine Occult Blood (Negative) Urine Nitrite (Negative) Urine Bilirubin (Negative) Urine Urobilinogen (0.2-1.0) Ur Leukocyte Esterase (Negative) Urine RBC (0-5) /hpf Urine WBC (0-5) /hpf Ur Epithelial Cells (0-5) /hpf Urine Bacteria (FEW) /hpf Urine Mucus (FEW) /hpf Result Diagrams: 02/01/17 06:55 Imaging Impressions last 24 hrs: See HPI Consult PN Assessment/Plan Procedures: Procedures BLOOD TYPING SEROLOGIC ABO (01/27/17) BLOOD TYPING SEROLOGIC RH(D) (01/27/17) GLUCOSE BLOOD TEST (01/27/17) RBC ANTIBODY SCREEN (01/27/17) ROUTINE VENIPUNCTURE (01/27/17) URINE TEST (01/27/17) VAG HYST INCLUDING T/O (01/27/17) (1) Abdominal pain SNOMED Code(s): 30927722 Code(s): R10.9 - UNSPECIFIED ABDOMINAL PAIN Current Visit: Yes (2) History of kidney stones SNOMED Code(s): 044664918 Code(s): Z87.442 - PERSONAL HISTORY OF URINARY CALCULI Current Visit: Yes Problem List Initiated/Reviewed/Updated: Yes My Orders last 24 hours: My Active Orders 02/01/17 09:00 HYDROmorphone [Dilaudid] 1 mg IVPUSH Q1H PRN 02/01/17 09:01 Ivp wo Tomograms [CR] Routine Plan: 46 yo woman POD#5 vaginal hysterectomy with severe right sided abdominal pain Toradol 15mg IVP x 1 now Increased Dilaudid to 1mg q1HR PRN Reviewed CT images personally and with Dr. Hernandez and we discussed, appendix normal, bowel normal, phleboliths but no other suspicious calcifications, gallbladder normal. Hepatomegaly present. Based on patient's history, will obtain IVP, discussed with Radiology Hx of itching with IV dye - premedicated with 125mg IV Solumedrol and 50mg IV Benadryl x [address] Peralta at time of the consult No acute general surgery issues at this time. Will continue to follow along for now to in the event of changes on her exam. Thank you for the consultation. I spent 1 hour and 15 minutes in discussion with the providers (Dr. Peralta, Dr. Hernandez) and review of her records and images and at the bedside with the patient.
[2017-02-01] MEDS ORDERED: Iopamidol 612 MG/ML 100 ML Bottle IVPUSH ONE (09:08)
[2017-02-01] MEDS: HYDROmorphone 1 MG/ML Syringe IVPUSH PRN ×8 (09:17→23:40)
[2017-02-01] MEDS ORDERED: Iopamidol 612 MG/ML 50 ML SDV IVPUSH ONE (09:44)
--- NOTE | 2017-02-01 11:03 | CR ---
Intravenous urogram Comparison: Previous noncontrast CT study performed at an outside institution dated 01/31/17. Findings: Preliminary view of the abdomen was obtained which shows several calcifications within the pelvis which correlates to phleboliths on previous CT exam. No abnormal calcifications are seen overlying the kidneys. Bowel gas pattern is normal. Bony structures are within normal limits for the patient's age. Symmetric contrast enhancement is seen after contrast administration within both kidneys. Kidneys show a normal location. No mass effect on the kidneys is seen. Collecting systems are seen and show no mass effect. Contrast is seen down to the distal ureters without evidence of obstruction. Post void upright view shows draining of the collecting systems and ureters as well as no significant post void residual within the bladder. Impression: 1. Normal intravenous urogram study. No findings of ureteral obstruction is seen. Diagnostic code #1
--- NOTE | 2017-02-01 15:32 | US ---
Abdominal ultrasound: Multiple real-time images of the abdomen were obtained. Comparison: Previous intravenous urogram study of 02/01/[address] exam of 01/31/17. Liver shows no focal parenchymal abnormality. Gallbladder shows no gallstones. No gallbladder wall thickening or biliary ductal dilatation is seen. Kidneys show no hydronephrosis or mass. Both kidneys measure 10.9 cm in length and show normal resistivity indices. Spleen size is normal. No discrete abnormality is noted within the pancreas. Aorta shows no aneurysmal dilatation. Inferior vena cava is patent. Prevoid volume within the bladder is 589 mL and post void volume is 5.7 mL. Bilateral ureteral jets are seen within the bladder. Impression: 1. No abnormality is identified on abdominal ultrasound study. Normal findings as described above. Diagnostic code #1
[2017-02-01] MEDS: Ibuprofen 600 MG Tab PO PRN (17:54)
--- NOTE | 2017-02-01 18:17 | PCM.PN ---
- General Info Date of Service: 02/01/17 Subjective Update: Patient feeling a fair amount better. Still in pain but sitting comfortable. Was hungry and ordered dinner. Functional Status: Reports: pain controlled, tolerating diet - Review of Systems General: Reports: No Symptoms HEENT: Reports: no symptoms Pulmonary: Reports: no symptoms Cardiovascular: Reports: No Symptoms Gastrointestinal: Reports: Abdominal pain. Denies: Nausea, Vomiting Genitourinary: Reports: no symptoms Musculoskeletal: Reports: no symptoms Skin: Reports: no symptoms Neurological: Reports: No Symptoms Psychiatric: Reports: no symptoms - Patient Data Vitals - most recent: Last Vital Signs Temp 37.1 C 02/01/17 15:00 Pulse 71 02/01/17 15:00 Resp 18 02/01/17 15:00 BP 126/76 02/01/17 15:00 Pulse Ox 94 L 02/01/17 15:00 Weight - most recent: 111.13 kg I&O - last 24 hours: Intake & Output 02/01/17 02/01/17 02/01/17 06:59 14:59 22:59 Intake Total 0 2000 Output Total 550 750 Balance -550 1250 Lab Results last 24 hrs: Laboratory Results - last 24 hr 02/01/17 02/01/17 02/01/17 Range/Units 03:24 05:33 06:23 WBC (3.98-10.04) K/mm3 RBC (3.98-5.22) M/mm3 Hgb (11.2-15.7) gm/L Hct (34.1-44.9) % MCV (79.4-94.8) fl MCH (25.6-32.2) pg MCHC (32.2-35.5) g/dl RDW Std Deviation (36.4-46.3) fL Plt Count (182-369) K/mm3 MPV (9.4-12.3) fl POC Glucose 82 57 L (70-105) mg/dL Urine Color Yellow (Yellow) Urine Appearance Clear (Clear) Urine pH 6.0 (5.0-8.0) Ur Specific Dexter 1.015 (1.005-1.030) Urine Protein Negative (Negative) Urine Glucose (UA) Negative (Negative) Urine Ketones Negative (Negative) Urine Occult Blood 3+ H (Negative) Urine Nitrite Negative (Negative) Urine Bilirubin Negative (Negative) Urine Urobilinogen 0.2 (0.2-1.0) Ur Leukocyte Esterase Trace H (Negative) Urine RBC 5-10 H (0-5) /hpf Urine WBC 0-5 (0-5) /hpf Ur Epithelial Cells 0-5 (0-5) /hpf Urine Bacteria Few (FEW) /hpf Urine Mucus Not seen (FEW) /hpf 02/01/17 02/01/17 02/01/17 Range/Units 06:55 11:40 15:34 WBC 12.21 H (3.98-10.04) K/mm3 RBC 4.04 (3.98-5.22) M/mm3 Hgb 12.1 (11.2-15.7) gm/L Hct 36.6 (34.1-44.9) % MCV 90.6 (79.4-94.8) fl MCH 30.0 (25.6-32.2) pg MCHC 33.1 (32.2-35.5) g/dl RDW Std Deviation 44.5 (36.4-46.3) fL Plt Count 203 (182-369) K/mm3 MPV 10.0 (9.4-12.3) fl POC Glucose 101 183 H (70-105) mg/dL Urine Color (Yellow) Urine Appearance (Clear) Urine pH (5.0-8.0) Ur Specific Dexter (1.005-1.030) Urine Protein (Negative) Urine Glucose (UA) (Negative) Urine Ketones (Negative) Urine Occult Blood (Negative) Urine Nitrite (Negative) Urine Bilirubin (Negative) Urine Urobilinogen (0.2-1.0) Ur Leukocyte Esterase (Negative) Urine RBC (0-5) /hpf Urine WBC (0-5) /hpf Ur Epithelial Cells (0-5) /hpf Urine Bacteria (FEW) /hpf Urine Mucus (FEW) /hpf Med Orders - Current: Current Medications Hydromorphone HCl (Dilaudid) 1 mg IVPUSH Q1H PRN PRN Reason: Pain Last Admin: 02/01/17 17:52 Dose: 1 mg Ibuprofen (Motrin) 600 mg PO Q6H PRN PRN Reason: Pain Last Admin: 02/01/17 17:54 Dose: 600 mg Ondansetron HCl (Zofran) 4 mg IVPUSH Q8H PRN PRN Reason: Nausea/Vomiting Last Admin: 02/01/17 09:23 Dose: 4 mg Discontinued Medications Diphenhydramine HCl (Benadryl) 50 mg IVPUSH ONETIME ONE Stop: 02/01/17 09:02 Last Admin: 02/01/17 09:17 Dose: 50 mg Diphenhydramine HCl (Benadryl) Confirm Administered Dose 50 mg .ROUTE .STK-MED ONE Stop: 02/01/17 09:04 Last Admin: 02/01/17 09:26 Dose: Not Given Fentanyl (Sublimaze) 50 mcg IVPUSH ONETIME ONE Stop: 02/01/17 01:17 Last Admin: 02/01/17 01:58 Dose: 50 mcg Hydromorphone HCl (Dilaudid) 0.2 mg IVPUSH Q2H PRN PRN Reason: Pain (severe 7-10) Last Admin: 02/01/17 07:53 Dose: 0.2 mg Sodium Chloride (Normal Saline) 1,000 mls @ 125 mls/hr IV ASDIRECTED ASHA Last Admin: 02/01/17 03:28 Dose: 125 mls/hr Dextrose/Sodium Chloride (Dextrose 5%-1/2 Ns) 1,000 mls @ 125 mls/hr IV ASDIRECTED ASHA Dextrose/Sodium Chloride (Dextrose 5%-1/2 Ns) 1,000 mls @ 125 mls/hr IV ASDIRECTED ASHA Last Admin: 02/01/17 06:35 Dose: 125 mls/hr Iopamidol (Isovue-300 (61%)) 100 ml IVPUSH ONETIME ONE Stop: 02/01/17 09:09 Last Admin: 02/01/17 11:32 Dose: Not Given Iopamidol (Isovue-300 (61%)) 100 ml IVPUSH ONETIME ONE Stop: 02/01/17 09:45 Last Admin: 02/01/17 09:46 Dose: 100 ml Ketorolac Tromethamine (Toradol) 15 mg IVPUSH ONETIME ONE Stop: 02/01/17 08:33 Last Admin: 02/01/17 08:32 Dose: 15 mg Ketorolac Tromethamine (Toradol) Confirm Administered Dose 30 mg .ROUTE .STK- MED ONE Stop: 02/01/17 08:34 Last Admin: 02/01/17 09:26 Dose: Not Given Methylprednisolone Sodium Succinate (Solu-Medrol) 125 mg IVPUSH ONETIME ONE Stop: 02/01/17 09:00 Last Admin: 02/01/17 09:17 Dose: 125 mg Ondansetron HCl (Zofran) 4 mg IVPUSH ONETIME ONE Stop: 02/01/17 01:17 Last Admin: 02/01/17 01:30 Dose: 4 mg - Exam General: alert, oriented HEENT: Pupils equal, Pupils reactive, EOMI, Mucous membr. moist/pink Neck: supple Lungs: Clear to auscultation, Normal respiratory effort Cardiovascular: Regular Rate, Regular Rhythm Abdomen: bowel sounds present, soft, no distension Extremities: no edema Skin: warm, dry, intact Wound/Incisions: healing well Neurological: no new focal deficit Psy/Mental Status: alert, normal affect, normal mood - Problem List & Annotations (1) Postoperative pain SNOMED Code(s): 147048257 Code(s): G89.18 - OTHER ACUTE POSTPROCEDURAL PAIN Status: Acute Current Visit: Yes (2) Type 2 diabetes mellitus SNOMED Code(s): 45128640 Code(s): E11.9 - TYPE 2 DIABETES MELLITUS WITHOUT COMPLICATIONS Status: Acute Current Visit: Yes (3) Right upper quadrant abdominal pain SNOMED Code(s): 331768029 Code(s): R10.11 - RIGHT UPPER QUADRANT PAIN Status: Acute Current Visit: Yes (4) History of kidney stones SNOMED Code(s): 773116800 Code(s): Z87.442 - PERSONAL HISTORY OF URINARY CALCULI Status: Acute Current Visit: Yes - Problem List Review Problem List Initiated/Reviewed/Updated: Yes - My Orders Last 24 Hours: My Active Orders 02/01/17 03:05 Strain Urine [RC] BID 02/01/17 04:02 Blood Glucose Check, Bedside [RC] WITHMEALSANDBED 02/01/17 16:21 Ibuprofen [Motrin] 600 mg PO Q6H PRN 02/01/17 Dinner ADA Diabetic [[place] [employer] Diet] [DIET] - Assessment Assessment:: Patient with better pain control but still with pain. Workup entirely negative. -IVP negative for stones -US neg for gall bladder disease as was imaging and labs - Plan Plan:: POD5 from uncomplicated LAVH now with significant pain. Imaging normal. Pain character has actually changed fairly significantly since her initial postoperative day or two. Today it is primarily right upper quadrant and some flank pain. Seem however worse after ambulating. She is very uncomfortable and will need to be admitted for further evaluation and pain control. Throughout today workup has been negative. Pain has improved. Still not characteristic postop LAVH pain. Will transition to oral ibuprofen with the dilaudid over night. Hydrate well. In morning change to po percocet with hope for discharge tomorrow. Transportation will be issue as patient's "will get lost coming here" so she does not have a ride.
[2017-02-01] MEDS: Insulin Aspart 100 Units/ML 3 ML Pen SUBCUT SCH (21:12)
[2017-02-01] MEDS: Sodium Chloride 0.9% 1,000 ML IV SCH (22:42)
[2017-02-02] MEDS: HYDROmorphone 1 MG/ML Syringe IVPUSH PRN ×3 (01:04→05:45)
[2017-02-02] MEDS: Ibuprofen 600 MG Tab PO PRN ×2 (01:05→08:35)
[2017-02-02] MEDS: Sodium Chloride 0.9% 1,000 ML IV SCH (05:48)
--- NOTE | 2017-02-02 08:32 | PCM.DCSUM1 ---
Discharge Summary - Hospital Course Brief History: Admitted with intractable pain. Significant negative workup. Not thought to be postop pain, negative IVP and gallbladder ultrasound. Eventually passed a kidney stone. - Discharge Data Discharge Date: 02/02/17 Discharge Disposition: Home, Self-Care 01 Condition: Good - Discharge Diagnosis/Problem(s) (1) Postoperative pain SNOMED Code(s): 019885087 ICD Code: G89.18 - OTHER ACUTE POSTPROCEDURAL PAIN Status: Acute Current Visit: Yes (2) Type 2 diabetes mellitus SNOMED Code(s): 60900447 ICD Code: E11.9 - TYPE 2 DIABETES MELLITUS WITHOUT COMPLICATIONS Status: Acute Current Visit: Yes (3) Right upper quadrant abdominal pain SNOMED Code(s): 066336267 ICD Code: R10.11 - RIGHT UPPER QUADRANT PAIN Status: Acute Current Visit : Yes (4) History of kidney stones SNOMED Code(s): 389278796 ICD Code: Z87.442 - PERSONAL HISTORY OF URINARY CALCULI Status: Acute Current Visit: Yes - Patient Summary/Data Operative Procedure(s) Performed: Total vaginal hysterectomy bilateral salpingectomy Hospital Course: Admitted with severe pain. Controllable with IV narcotics. Vaginal cuff normal. CT in [place] had been normal. Pain similar to that when she had had a kidney stone in the past. IVP (premedicated with solumedrol and benadryl) normal. Normal gall bladder ultrasound. l Second evening in hospital passed a kidney stone. - Patient Instructions Diet: Usual Diet as Tolerated, Diabetic Diet Activity: No Strenuous Activities Activity, Other: pelvic rest Driving: Do Not Drive Showering/Bathing: May Shower Notify Provider of: Fever, Increased Pain, Swelling and Redness, Drainage, Nausea and/or Vomiting - Discharge Plan Prescriptions/Med Rec: Acetaminophen/oxyCODONE [Percocet 325-5 MG] 2 tab PO Q4H PRN #30 tablet PRN Reason: Pain Home Medications: Home Meds Chlorzoxazone [Parafon Forte] 500 mg PO BID 01/26/17 [History] Gabapentin 800 mg PO BID 01/26/17 [History] Insulin Aspart [NovoLOG] 1 unit SQ TIDAC 01/26/17 [History] Insulin Glarg,Human.Rec.Analog [LantUS Solostar] 45 units SQ BID 01/26/17 [ History] metFORMIN HCl [Metformin HCl ER] 1,000 mg PO BEDTIME 01/26/17 [History] Acetaminophen/oxyCODONE [Percocet 325-5 MG] 2 tab PO Q4H PRN #30 tablet [Rx] Ibuprofen [IJD: Ibuprofen] 600 mg PO Q6H PRN #0 tablet 02/02/17 [Rx] Insulin Aspart [NovoLOG] 0 unit SUBCUT QIDACANDBED pen 02/02/17 [Rx] Patient Handouts: Pain Relief Preoperatively and Postoperatively Referrals: Jamal Paula MD [Physician] - (as scheduled for postop care) PCP,Tarah [Primary Care Provider] - (In [place] to discuss blood sugar and kidney stone management in future.) - Discharge Summary/Plan Comment DC Time >30 min.: Yes - Patient Data Vitals - Most Recent: Last Vital Signs Temp 36.8 C 02/02/17 01:16 Pulse 73 02/02/17 01:16 Resp 16 02/02/17 01:16 BP 120/58 L 02/02/17 01:16 Pulse Ox 95 02/02/17 01:16 Weight - Most Recent: 112.808 kg I&O - Last 24 hours: Intake & Output 02/01/17 02/02/17 02/02/17 22:59 06:59 14:59 Intake Total 2000 1192 Output Total 1850 Balance 150 1192 Lab Results - Last 24 hrs: Laboratory Results - last 24 hr 02/01/17 02/01/17 02/01/17 Range/Units 11:40 15:34 20:52 POC Glucose 101 183 H 306 H (70-105) mg/dL 02/02/17 Range/Units 05:50 POC Glucose 180 H (70-105) mg/dL Med Orders - Current: Current Medications Hydromorphone HCl (Dilaudid) 1 mg IVPUSH Q1H PRN PRN Reason: Pain Last Admin: 02/02/17 05:45 Dose: 1 mg Sodium Chloride (Normal Saline) 1,000 mls @ 125 mls/hr IV ASDIRECTED ASHA Last Admin: 02/02/17 05:48 Dose: 125 mls/hr Ibuprofen (Motrin) 600 mg PO Q6H PRN PRN Reason: Pain Last Admin: 02/02/17 01:05 Dose: 600 mg Insulin Aspart (Novolog) 0 unit SUBCUT QIDACANDBED ASHA PRN Reason: Protocol Last Admin: 02/01/17 21:12 Dose: 4 units Ondansetron HCl (Zofran) 4 mg IVPUSH Q8H PRN PRN Reason: Nausea/Vomiting Last Admin: 02/01/17 22:41 Dose: 4 mg Discontinued Medications Diphenhydramine HCl (Benadryl) 50 mg IVPUSH ONETIME ONE Stop: 02/01/17 09:02 Last Admin: 02/01/17 09:17 Dose: 50 mg Diphenhydramine HCl (Benadryl) Confirm Administered Dose 50 mg .ROUTE .STK-MED ONE Stop: 02/01/17 09:04 Last Admin: 02/01/17 09:26 Dose: Not Given Fentanyl (Sublimaze) 50 mcg IVPUSH ONETIME ONE Stop: 02/01/17 01:17 Last Admin: 02/01/17 01:58 Dose: 50 mcg Fentanyl (Sublimaze) 50 mcg IVPUSH ONETIME ONE Stop: 02/01/17 22:31 Last Admin: 02/01/17 22:35 Dose: 50 mcg Hydromorphone HCl (Dilaudid) 0.2 mg IVPUSH Q2H PRN PRN Reason: Pain (severe 7-10) Last Admin: 02/01/17 07:53 Dose: 0.2 mg Sodium Chloride (Normal Saline) 1,000 mls @ 125 mls/hr IV ASDIRECTED [facility] Last Admin: 02/01/17 03:28 Dose: 125 mls/hr Dextrose/Sodium Chloride (Dextrose 5%-1/2 Ns) 1,000 mls @ 125 mls/hr IV ASDIRECTED [facility] Dextrose/Sodium Chloride (Dextrose 5%-1/2 Ns) 1,000 mls @ 125 mls/hr IV ASDIRECTED [facility] Last Admin: 02/01/17 06:35 Dose: 125 mls/hr Iopamidol (Isovue-300 (61%)) 100 ml IVPUSH ONETIME ONE Stop: 02/01/17 09:09 Last Admin: 02/01/17 11:32 Dose: Not Given Iopamidol (Isovue-300 (61%)) 100 ml IVPUSH ONETIME ONE Stop: 02/01/17 09:45 Last Admin: 02/01/17 09:46 Dose: 100 ml Ketorolac Tromethamine (Toradol) 15 mg IVPUSH ONETIME ONE Stop: 02/01/17 08:33 Last Admin: 02/01/17 08:32 Dose: 15 mg Ketorolac Tromethamine (Toradol) Confirm Administered Dose 30 mg .ROUTE .STK- MED ONE Stop: 02/01/17 08:34 Last Admin: 02/01/17 09:26 Dose: Not Given Methylprednisolone Sodium Succinate (Solu-Medrol) 125 mg IVPUSH ONETIME ONE Stop: 02/01/17 09:00 Last Admin: 02/01/17 09:17 Dose: 125 mg Ondansetron HCl (Zofran) 4 mg IVPUSH ONETIME ONE Stop: 02/01/17 01:17 Last Admin: 02/01/17 01:30 Dose: 4 mg *Q Meaningful Use (DIS) - VTE *Q VTE Criteria *Q: - Stroke *Q Stroke Criteria *Q: - AMI *Q AMI Criteria *Q:
[2017-02-02] MEDS: Insulin Aspart 100 Units/ML 3 ML Pen SUBCUT SCH (09:03)
[2017-02-02] MEDS ORDERED: Docusate Sodium 100 MG Cap PO ONE (09:26)
[2017-02-02 11:47] VITALS: BP 134/77
== END 2017-02-02 11:30 | disposition home or self-care (01) | DRG 948 ==
LOC: JD.ED 00:30 → JD.ICU 02:59
PROVIDERS: ADMIT Obstetrics & Gynecology; ATTEND Obstetrics & Gynecology
DX: G89.18 Other acute postprocedural pain (principal); R10.11 Right upper quadrant pain; Z90.710 Acquired absence of both cervix and uterus; E11.40 Type 2 diabetes mellitus with diabetic neuropathy, unspecified; Z79.84 Long term (current) use of oral hypoglycemic drugs; Z87.442 Personal history of urinary calculi; K58.9 Irritable bowel syndrome, unspecified; M79.7 Fibromyalgia; F32.9 Major depressive disorder, single episode, unspecified; Z87.891 Personal history of nicotine dependence; Z79.899 Other long term (current) drug therapy; Z88.8 Allergy status to other drugs, medicaments and biological substances; Z88.6 Allergy status to analgesic agent; Z91.040 Latex allergy status; Z91.041 Radiographic dye allergy status
CPT/HCPCS: 82962 ×2; 96361; 96374; 96375; 99285; J2405; J3010; 36415; 74415; 74415-26; 76700; 76700-26; 81001; 85027; 96376; 99284; A9270-GY; J1170; J1200; J1815-GY; J1885; J2930; J7040; J7042; Q9967

== ENCOUNTER 2017-02-08 01:08 | Observation (INO) | payer MEDICAID ==
[2017-02-08] MEDS ORDERED: Ondansetron 4 MG/2 ML SDV IVPUSH PRN (01:57)
[2017-02-08] MEDS ORDERED: LORazepam 1 MG Tab PO PRN (01:57)
--- NOTE | 2017-02-08 02:19 | PCM.HP ---
H&P History of Present Illness - General Date of Service: 02/08/17 Admit Problem/Dx: Admission Diagnosis/Problem Admission Diagnosis/Problem Abdominal pain Right-sided abdominal pain Source of Information: Patient History Limitations: Reports: No limitations - History of Present Illness Initial Comments - Free Text/Narative: Lakeshia is a 46-year-old 3 para 3003 white female who called this evening having been seen in the emergency room at [facility] in [facility]. She reported right-sided abdominal pain and right back pain. She has a history of kidney stone last week when admitted for a similar discomfort. She is status post hysterectomy done on 01/27/2017 by myself which consisted of a total vaginal hysterectomy and bilateral salpingectomy. She recovered normally from that. Pain had almost resolved when she began having right-sided pain last week. She is to do with analgesia and passed 2 stones. The patient has been evaluated with CAT scan this evening which was unremarkable. Her white blood count was mildly elevated at approximately 13. Her CBC, chemistry profile and urinalysis were positive only for a trace of intact blood in the urine analysis. Previous CAT scans showed evidence of surgery but no evidence of hematoma, seroma, masses or infection. Appendix looked normal and CAT scan this evening. Past medical history: 1. Right arm fracture 2. Questionable history of malignant hypothermia however 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 Past surgical history: 1. x3 2. Total vaginal hysterectomy with bilateral salpingectomy. 3. Colonoscopy/EGD 4. Tonsillectomy 5. Kidney stone as traction 6.Essure procedure 7. Open reduction of right arm fracture Allergies 1. Fluconazole 2. Latex 3. Demerol 4. Naproxen 5. IV dye Home medications: 1. Parafon Forte J5 100 mg by mouth twice a day 2. Gabapentin 800 mg by mouth twice a day 3. Insulin aspart (NovoLog) 1 units subcutaneous 3 times a day a.c. 4. In sling Humulin and allowed 45 units subcutaneous twice a day 5. Zofran 8 mg by mouth 3 times a day when necessary 6. Metformin 1000 mg by mouth Q. bedtime 7. Acetaminophen oxycodone in the form of Percocet when necessary 8. Ibuprofen 600 mg every 6 hours when necessary pain. 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 She uses marijuana recreationally but has not done so for a few months by her history. Former smoker. No significant alcohol use by her history. Review of systems: Cardiovascular-negative Respiratory-negative GI-negative /abdomen-right sided pain, right flank pain, right CVA tenderness Neurological-negative Musculoskeletal-negative Physical exam: Vital signs stable, patient is afebrile. In general patient is a well-developed, well-nourished, obese white female who appears somewhat exaggerated in her response to questions about her pain. Her responses were inconsistent however if her attention is directed elsewhere. HEENT, neck and back normotensive Lungs are clear with good breath sounds in all feliz. Cardiovascular exam shows mildly increased rate, regular rhythm. No murmurs. Breast exam deferred. Back is with minimal CVA tenderness on the right side but this also is less than expected from patient's description of pain. Abdomen is obese, deep palpation with the stethoscope reveals minimal pain but palpation with hand with her questions regarding pain reveals more pain. No rebound tenderness but guarding is noted only when patient is asked about pain. No masses or organomegaly noted. Genital exam her external evaluation is normal. There is no evidence of hematoma , seroma or abscess on bimanual exam. Many exams very well tolerated. Extremities and neurological exam are grossly within normal limits. - Related Data Allergies/Adverse Reactions: Allergies Allergy/AdvReac Type Severity Reaction Status Date / Time fluconazole [From Diflucan] Allergy Cannot Verified 01/26/17 10:22 Remember latex Allergy Itching Verified 01/26/17 10:22 meperidine [From Demerol] Allergy Cannot Verified 01/26/17 10:22 Remember naproxen [From Aleve] Allergy Cannot Verified 01/26/17 10:22 Remember iv dye Allergy Cannot Uncoded 01/26/17 10:22 Remember Home Medications: Home Meds Chlorzoxazone [Parafon Forte] 500 mg PO BID 01/26/17 [History] Gabapentin 800 mg PO BID 01/26/17 [History] Insulin Aspart [NovoLOG] 1 unit SQ TIDAC 01/26/17 [History] Insulin Glarg,Human.Rec.Analog [LantUS Solostar] 45 units SQ BID 01/26/17 [ History] metFORMIN HCl [Metformin HCl ER] 1,000 mg PO BEDTIME 01/26/17 [History] Acetaminophen/oxyCODONE [Percocet 325-5 MG] 2 tab PO Q4H PRN #30 tablet [Rx] Ibuprofen [IJD: Ibuprofen] 600 mg PO Q6H PRN #0 tablet 02/02/17 [Rx] Insulin Aspart [NovoLOG] 0 unit SUBCUT QIDACANDBED pen 02/02/17 [Rx] Past Medical History HEENT History: Reports: Impaired vision, Other (see below) Other HEENT History: WEARS GLASSES Cardiovascular History: Reports: None Respiratory History: Reports: None Gastrointestinal History: Reports: Irritable bowel syndrome Genitourinary History: Reports: Renal calculus, Other (see below) Other Genitourinary History: 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: , Other (see below) Other OB/BYN History: DYSPAREUNIA, DYSMENORRHEA, LAPAROSCOPY X2, ESSURE PROCEDURE, ADENOMYOSIS, IRREGULAR MENSES, PELVIC PAIN Musculoskeletal History: Reports: Fibromyalgia, Other (see below) Other Musculoskeletal History: R ELBOW FRACTURE, BILATERAL ARM FRACTURES, KNEE ARTHROSCOPY L AND R X2, PATELLAR RECONSTRUCTION Neurological History: Reports: Neuropathy, diabetic, Seizure Psychiatric History: Reports: Depression Endocrine/Metabolic History: Reports: Diabetes, gestational, Diabetes, type II Hematologic History: Reports: None Immunologic History: Reports: None Oncologic (Cancer) History: Reports: None Dermatologic History: Reports: None - Past Surgical History HEENT Surgical History: Reports: Tonsillectomy GI Surgical History: Reports: Colonoscopy, EGD Female Surgical History: Reports: section, Hysterectomy (Vaginal) Musculoskeletal Surgical History: Reports: Arthroscopic knee, Arthroscopic procedure - Past Imaging History Past Imaging History: Reports: CAT scan Social & Family History - Family History Family Medical History: Noncontributory - Tobacco Use Smoking Status *Q: Former Smoker Used Tobacco, but Quit: Yes Month Tobacco Last Used: 2006 Second Hand Smoke Exposure: Yes - Caffeine Use Caffeine Use: Reports: None - Alcohol Use Days Per Week of Alcohol Use: 0 Number of Drinks Per Day: 0 Total Drinks Per Week: 0 - Recreational Drug Use Recreational Drug Use: Yes Drug Use in Last 12 Months: No Recreational Drug Type: Reports: Marijuana/Hashish Other Recreational Drug Type: last used over three months ago Recreational Drug Use Frequency: Not Used In Over 3 Months - Living Situation & Occupation Living situation: Reports: 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) H&P Review of Systems - Review of Systems: Review Of Systems: See Below Exam - Exam Exam: See Below - Vital Signs Weight: 112.808 kg *Q Meaningful Use (ADM) - VTE *Q VTE Criteria *Q: - Stroke *Q Stroke Criteria *Q: - AMI *Q AMI Criteria *Q: Problem List Initiated/Reviewed/Updated: Yes Orders Last 24hrs: Active Orders 24 hr Category Date Time Status Patient Status [ADT] Routine ADT 02/08/17 01:57 Active Ambulate [RC] ASDIRECTED Care 02/08/17 01:57 Active Blood Glucose Check, Bedside [RC] WITHMEALSANDBED Care 02/08/17 02:05 Active Communication Order [RC] ASDIRECTED Care 02/08/17 02:02 Active May Shower [RC] ASDIRECTED Care 02/08/17 01:57 Active Vital Signs [RC] PER UNIT ROUTINE Care 02/08/17 01:57 Active Regular Diet [DIET] Diet 02/08/17 Breakfast Active CBC WITH AUTO DIFF [HEME] AM Lab 02/08/17 05:11 Ordered HYDROmorphone [Dilaudid] Med 02/08/17 01:57 Active 1 mg IVPUSH Q2H PRN Insulin Glarg,Human.Rec.Analog Med 02/08/17 09:00 Ordered 45 units SQ BID LORazepam [Ativan] Med 02/08/17 01:57 Active 1 mg PO BEDTIME PRN Ondansetron [Zofran] Med 02/08/17 01:57 Active 4 mg IVPUSH Q4H PRN metFORMIN Med 02/08/17 21:00 Ordered 1,000 mg PO BEDTIME Resuscitation Status Routine Resus Stat 02/08/17 01:57 Ordered Medication Orders Hydromorphone HCl (Dilaudid) 1 mg IVPUSH Q2H PRN PRN Reason: Pain Lorazepam (Ativan) 1 mg PO BEDTIME PRN PRN Reason: Pain Non-Formulary Medication (Insulin Glarg,Human.Rec.Analog) 45 units SQ BID ASHA Non-Formulary Medication (Metformin) 1,000 mg PO BEDTIME ASHA Ondansetron HCl (Zofran) 4 mg IVPUSH Q4H PRN PRN Reason: Nausea/Vomiting Assessment/Plan Comment:: Assessment: 1. Reported rate sided abdominal pain into the flank and CVA area. Cannot entirely rule out kidney stone or ureteral stone. Patient has had a stone as late as last week-confirmed with straining of urine. At that time CAT scan and urinalysis were relatively unremarkable. Tonight urinalysis shows trace and intact blood. It is very difficult to tell whether this is drug seeking behavior versus real pain. 2. Status post hysterectomy with what appears to be good recovery from surgery. 3. Multiple medical diagnoses within the last 2 months requiring pain medications including fracture right arm, orthopedic surgery right arm, hysterectomy, kidney stones. When questioned whether a dependence upon opiates has developed. 4. Adult onset diabetes on insulins and metformin. Plan: 1. IV fluid hydration 2. Ativan 1 mg by mouth q. at bedtime for anxiety 3. Dilaudid 1 mg q. 2 hours IV-for a very short period only and attempt to wean off all medications. 4. Strain urine. I and O. 5. We'll reassess in several hours to see if things improved. 6. Essentially regular diet. We'll continue with blood sugars 4 times a day and reorder insulin and metformin.
[2017-02-08] MEDS ORDERED: Lactated Ringers 1,000 ML IV SCH (03:15)
[2017-02-08] MEDS ORDERED: Sodium Chloride 0.9% 10 ML Syringe FLUSH PRN (03:15)
[2017-02-08] MEDS: HYDROmorphone 1 MG/ML Syringe IVPUSH PRN ×2 (03:57→07:09)
[2017-02-08] MEDS ORDERED: metFORMIN 500 MG Tab PO SCH (08:00)
[2017-02-08] MEDS ORDERED: Insulin Detemir 100 Units/ML 3 ML Pen SUBCUT SCH (09:00)
[2017-02-08 09:36] VITALS: BP 128/68
[2017-02-08] MEDS ORDERED: Acetaminophen/oxyCODONE 325-5 MG Tab PO PRN (09:38)
--- NOTE | 2017-02-08 12:13 | PCM.DCSUM1 ---
Discharge Summary - Hospital Course Free Text/Narrative:: Lakeshia is a 46-year-old 3 para 3003 white female who called last evening having been seen in the emergency room at [facility] in [facility]. She reported right-sided abdominal pain and right back pain. She has a history of kidney stone last week when admitted for a similar discomfort. She is status post hysterectomy done on 01/27/2017 by myself which consisted of a total vaginal hysterectomy and bilateral salpingectomy. She recovered normally from that. Pain had almost resolved when she began having right-sided pain last week. She is to do with analgesia and passed 2 stones. The patient has been evaluated with CAT scan this evening which was unremarkable. Her white blood count was mildly elevated at approximately 13. Her CBC, chemistry profile and urinalysis were positive only for a trace of intact blood in the urine analysis. Previous CAT scans showed evidence of surgery but no evidence of hematoma, seroma, masses or infection. Appendix looked normal and CAT scan this evening. She was treated analgesia-dilaudid and with one dose of ativan. She was also fluid hydrated with IV NS. Over the hospital course she passed a small kidney stone. With that stone passage the pain improved significantly. This AM she is ready for discharge. - Discharge Data Discharge Date: 02/08/17 Discharge Disposition: Home, Self-Care 01 Condition: Good - Patient Instructions Diet: Regular Diet as Tolerated Activity: As Tolerated Driving: Do Not Drive Showering/Bathing: May Shower (May take a bath) Notify Provider of: Fever, Increased Pain, Swelling and Redness, Nausea and/or Vomiting - Discharge Plan Prescriptions/Med Rec: oxyCODONE HCl/Acetaminophen [Percocet 10-325 mg Tablet] 1 each PO Q6HR PRN #10 tablet PRN Reason: Pain (Severe 7-10) Home Medications: Home Meds Chlorzoxazone [Parafon Forte] 500 mg PO BID 01/26/17 [History] Gabapentin 800 mg PO BID 01/26/17 [History] Ibuprofen [IJD: Ibuprofen] 600 mg PO Q6H PRN #0 tablet 02/02/17 [Rx] Insulin Aspart [NovoLOG] 0 unit SUBCUT QIDACANDBED pen 02/02/17 [Rx] oxyCODONE HCl/Acetaminophen [Percocet 10-325 mg Tablet] 1 each PO Q6HR PRN #10 tablet 02/08/17 [Rx] Patient Handouts: Tips for Eating Away From Home If You Have Diabetes, Diabetes and Sick Day Management, Kidney Stones, [id number]-[id number], Flank Pain, Easy- to-Read, Type 2 Diabetes Mellitus, Adult, [id number] - Discharge Summary/Plan Comment DC Time >30 min.: No Discharge Summary/Plan Comment: Discharge Instructions: 1. Discharge Home. 2. Regular diet 3. Precautions given regarding increased pain, bleeding, temperature and s/s of DVT/PE. 4. Medications list printed, discussed with and given to patient 5. RTC 2 weeks-[facility]. [facility] Dx: 1. Abdominal/flank pain 2. Kidney stones Condition: good - Patient Data Vitals - Most Recent: Last Vital Signs Temp 37.1 C 02/08/17 08:32 Pulse 88 02/08/17 08:32 Resp 16 02/08/17 08:32 BP 128/68 02/08/17 08:32 Pulse Ox 97 02/08/17 08:32 Weight - Most Recent: 112.808 kg I&O - Last 24 hours: Intake & Output 02/07/17 02/08/17 02/08/17 22:59 06:59 14:59 Intake Total 462 540 Output Total 100 Balance 362 540 Lab Results - Last 24 hrs: Laboratory Results - last 24 hr 02/08/17 02/08/17 02/08/17 Range/Units 06:08 06:09 11:20 WBC 11.63 H (3.98-10.04) K/mm3 RBC 4.23 (3.98-5.22) M/mm3 Hgb 12.4 (11.2-15.7) gm/L Hct 38.2 (34.1-44.9) % MCV 90.3 (79.4-94.8) fl MCH 29.3 (25.6-32.2) pg MCHC 32.5 (32.2-35.5) g/dl RDW Std Deviation 46.2 (36.4-46.3) fL Plt Count 204 (182-369) K/mm3 MPV 10.4 (9.4-12.3) fl Neut % (Auto) 68.4 (34.0-71.1) % Lymph % (Auto) 18.7 L (19.3-51.7) % [place] % (Auto) 8.3 (4.7-12.5) % Eos % (Auto) 3.4 (0.7-5.8) Baso % (Auto) 0.3 (0.1-1.2) % Neut # (Auto) 7.97 H (1.56-6.13) K/mm3 Lymph # (Auto) 2.17 (1.18-3.74) K/mm3 [place] # (Auto) 0.97 H (0.24-0.36) K/mm3 Eos # (Auto) 0.39 H (0.04-0.36) K/mm3 Baso # (Auto) 0.03 (0.01-0.08) K/mm3 POC Glucose 136 H 155 H (70-105) mg/dL Med Orders - Current: Current Medications Hydromorphone HCl (Dilaudid) 1 mg IVPUSH Q2H PRN PRN Reason: Pain Last Admin: 02/08/17 07:09 Dose: 1 mg Lactated Ringer's (Ringers, Lactated) 1,000 mls @ 150 mls/hr IV ASDIRECTED [facility] Last Admin: 02/08/17 03:47 Dose: 150 mls/hr Insulin Detemir (Levemir) 45 unit SUBCUT BID [facility] Last Admin: 02/08/17 08:35 Dose: 45 units Lorazepam (Ativan) 1 mg PO BEDTIME PRN PRN Reason: Pain Last Admin: 02/08/17 03:12 Dose: 1 mg Metformin HCl (Glucophage) 500 mg PO BIDMEALS [facility] Last Admin: 02/08/17 08:34 Dose: 500 mg Ondansetron HCl (Zofran) 4 mg IVPUSH Q4H PRN PRN Reason: Nausea/Vomiting Oxycodone/Acetaminophen (Percocet 325-5 Mg) 2 tab PO Q4H PRN PRN Reason: Pain Last Admin: 02/08/17 10:09 Dose: 2 tab Sodium Chloride (Saline Flush) 10 ml FLUSH ASDIRECTED PRN PRN Reason: Keep Vein Open *Q Meaningful Use (DIS) - VTE *Q VTE Criteria *Q: - Stroke *Q Stroke Criteria *Q: - AMI *Q AMI Criteria *Q:
== END 2017-02-08 12:45 | disposition home or self-care (01) ==
LOC: JD.MS 01:08 → UNDOADMOB 01:08 → JD.MS 01:57
PROVIDERS: ADMIT Obstetrics & Gynecology; ATTEND Obstetrics & Gynecology
DX: R10.9 Unspecified abdominal pain (principal); K58.9 Irritable bowel syndrome, unspecified; M79.7 Fibromyalgia; E11.40 Type 2 diabetes mellitus with diabetic neuropathy, unspecified; Z87.442 Personal history of urinary calculi; Z90.710 Acquired absence of both cervix and uterus; Z90.79 Acquired absence of other genital organ(s); Z90.89 Acquired absence of other organs; Z98.890 Other specified postprocedural states; Z88.3 Allergy status to other anti-infective agents; Z88.5 Allergy status to narcotic agent; Z88.6 Allergy status to analgesic agent; Z91.040 Latex allergy status; Z91.041 Radiographic dye allergy status; Z79.4 Long term (current) use of insulin; Z79.84 Long term (current) use of oral hypoglycemic drugs; Z79.899 Other long term (current) drug therapy; Z87.891 Personal history of nicotine dependence
CPT/HCPCS: 36415; 82355; 82962; 85025; 96361; 96374; 96376; A9270; G0378; J1170; J1815; J7120; 82365; G0379

== ENCOUNTER 2017-08-10 11:46 | Observation (INO) | payer MEDICAID ==
[2017-08-10] MEDS ORDERED: Acetaminophen/oxyCODONE 325-5 MG Tab PO PRN (11:58)
[2017-08-10] MEDS ORDERED: Sodium Chloride 0.9% 10 ML Syringe FLUSH PRN (11:58)
[2017-08-10] MEDS ORDERED: Docusate Sodium 100 MG Cap PO PRN (11:58)
[2017-08-10] MEDS ORDERED: Acetaminophen 325 MG Tab PO PRN (11:58)
[2017-08-10] MEDS ORDERED: Ondansetron 4 MG Tab.DIS PO PRN (11:58)
[2017-08-10] MEDS ORDERED: Magnesium Hydroxide 400 MG/5 ML Susp 30 ML Cup PO SCH (12:00)
--- NOTE | 2017-08-10 12:14 | PCM.SN ---
- Free Text/Narrative Note: Admission H&P Chief complaint: Severe, persistent pelvic pain since 08/08/17 History of present illness: Lakeshia is a 46-year-old female who presents with complaints of severe and persistent pelvic pain since 08/08/17. She reports that she had sudden onset pain in her right lower quadrant of the abdomen and pelvis that began on Thursday evening, 08/08/17, at around 11:45 PM when she was awoken from her sleep. She went to the emergency department in [place] where they performed blood work and per her report the only abnormality was hypokalemia and she was given treatment for this. She reports that the pain has been persistent since that time and improved slightly yesterday going down to about a 5-6/10. She reports that the pain is in the right lower quadrant near her inguinal ligament and is sharp in nature with some cramping pain with some radiation to the right flank. She reports that the pain improved slightly with lying down. Pain is worse with ambulation. She reports that she had taken some Tylenol last evening with minimal relief. Reports the pain is a 9/10 in the office today. Reports that this feels different than her previous pain with her kidney stones following the hysterectomy. Reports she has a history of dyspareunia on the right side with insertion and deep thrusting. She reports that she has been having some chills but denies any fevers. Reports that she is having regular bowel movements with the last bowel movement yesterday. Denies any hematochezia. She is voiding without difficulty. Denies any hip pain. Past medical history: Type 2 diabetes, fibromyalgia, irritable bowel syndrome, bipolar disorder, history of kidney stones Past surgical history: section, colonoscopy, EGD, total vaginal hysterectomy with bilateral salpingectomy, patellar arthroplasty, tonsillectomy , removal of kidney stone Family history: History of diabetes and hypertension in her mother, history of colon cancer and myocardial infarction in paternal grandmother Social history: History of tobacco use but denies currently, denies alcohol use , denies drug use Review of systems: Constitutional: Positive chills, negative fevers GI: Positive abdominal pain, denies nausea, vomiting, constipation, diarrhea, hematochezia Genital: Positive pelvic pain, denies bleeding or vaginal pain Urinary: Denies any dysuria, bladder pain, hematuria, urinary frequency, urinary urgency, Musculoskeletal: Denies abnormal muscle or joint pains Physical exam T 98.2F, HR 104, BP 158/90 Gen.: Well-developed and well-nourished, moderate distress, alert and oriented Head: Normocephalic and atraumatic Pulmonary: Unlabored breathing Abdomen: Soft, nondistended, mild tenderness in right lower quadrant near her inguinal ligament, no guarding or rebound tenderness Pelvic: Normal-appearing labia majora and GRN labia minora, mild tenderness at the vaginal introitus with palpation of bulbospongiosus muscle, normal- appearing vaginal mucosa, no discharge within the vaginal vault, well-healed vaginal cuff with normal-appearing uterosacral dimples bilaterally, uterus absent on bimanual exam, bilateral tenderness in adnexa without masses palpated Rectal: Normal rectal tone, moderate stool burden, no bright red blood per rectal exam Urinalysis (08/10/17) Color yellow Appearance clear Specific gravity 1.020 Protein negative Glucose 2+ Ketones trace Occult blood negative Nitrite negative Leukocyte esterase negative RBC 0-5 hpf WBC 0-5 hpf Bacteria rare Assessment/plan * Abdominal pelvic pain in female - uncertain cause of pain in this female. She has had a history of a hysterectomy with bilateral salpingectomy and the ovaries remain in place. Differential diagnosis includes ovarian torsion, ovarian cysts, nephrolithiasis, pelvic infection, pyelonephritis, colitis, or pain from previous scar tissue. Due to patient's significant pain with tachycardia and mild elevation of blood pressure in the clinic and overall appearance will refer patient to observation overnight in the hospital. Will provide pain control using Tylenol, Percocet and Dilaudid as needed for pain. Plan to perform CT of abdomen and pelvis with contrast to rule out possible kidney stone versus evaluate for other causes of her pain which may include enlarged ovary with cysts. Due to history of allergy to IV contrast will give patient Benadryl 50 mg by mouth and Solu-Medrol 40 mg IV prior to her exam. * Patient to be nothing by mouth at this time until completion of her CT exam for need for possible surgical management emergently * Lactated Ringer's at 125 mL/h * Activity as tolerated * Will continue patient's home medications * CBC, CMP * Vitals every 4 hours Mazin Stover M.D. 12:14 PM 08/10/17
[2017-08-10] MEDS ORDERED: diphenhydrAMINE 50 MG Cap PO ONE (12:57)
[2017-08-10] MEDS ORDERED: methylPREDNISolone Sodium Succinate 40 MG/1 ML SDV IVPUSH ONE (12:57)
[2017-08-10] MEDS ORDERED: Pneumococcal Polyvalent-23 Vaccine 0.5 ML SDV IM ONE (12:59)
[2017-08-10] MEDS ORDERED: FLU Vacc QS 2017-18 (6mos UP)/PF 60 MCG/0.5 ML Syringe IM ONE (13:15)
[2017-08-10] MEDS: HYDROmorphone 0.5 MG/0.5 ML Syringe IVPUSH PRN ×3 (13:22→23:50)
[2017-08-10] MEDS ORDERED: Diatrizoate Meglumine/Diatrizoate Sodium 37% 120 ML Bottle PO ONE (13:32)
[2017-08-10] MEDS ORDERED: Iopamidol 612 MG/ML 100 ML Bottle IVPUSH ONE (13:32)
[2017-08-10] MEDS ORDERED: Sodium Chloride 0.9% 10 ML Syringe FLUSH ONE (13:32)
[2017-08-10] MEDS: Lactated Ringers 1,000 ML IV SCH ×2 (13:37→22:12)
[2017-08-10] MEDS ORDERED: Sodium Chloride 0.9% 100 ML IV SCH (13:45)
--- NOTE | 2017-08-10 14:42 | CT ---
CT abdomen and pelvis Technique: Multiple axial sections were obtained from above the dome of the diaphragm inferiorly through the pubic symphysis. Intravenous and oral contrast was utilized. Comparison: Previous abdominal ultrasound is 02/01/17 and prior outside performed CT abdomen and pelvis exam performed as a noncontrast exam dated 01/31/17. Findings: Small portion of the visualized lung bases are clear. Liver shows slight fatty infiltration. No focal abnormality is appreciated within the liver. Spleen appears within normal limits. Adrenal glands show no nodule. Kidneys show no hydronephrosis or mass. Aorta shows no aneurysmal dilatation. No retroperitoneal adenopathy or mesenteric abnormalities are seen. Gallbladder shows no calcified gallstones. Appendix is felt to be visualized and is within normal limits. Mild increased stool is noted within the colon. No pelvic mass or adenopathy is seen. Delayed images show contrast within the bladder. There is no inflammatory change or free fluid being seen within the abdomen or pelvis. Bone window settings were reviewed which show minimal degenerative change scattered within the spine. Impression: 1. Mild increased stool within the colon. 2. Probable fatty infiltration within the liver. 3. No additional abnormality is appreciated on CT study of the abdomen and pelvis. Nothing acute is appreciated. Diagnostic code #2
[2017-08-10] MEDS ORDERED: Magnesium Hydroxide 400 MG/5 ML Susp 30 ML Cup PO ONE (16:18)
[2017-08-10] MEDS: Insulin Aspart 100 Units/ML 3 ML Pen SUBCUT SCH ×2 (17:30→21:54)
[2017-08-10] MEDS ORDERED: diphenhydrAMINE 25 MG Cap PO ONE (18:15)
[2017-08-10] MEDS ORDERED: diphenhydrAMINE 50 MG/ML SDV ONE (18:19)
[2017-08-10] MEDS ORDERED: Magnesium Citrate Solution 296 ML Bottle PO ONE (18:29)
[2017-08-10] MEDS: Sucralfate 1 GM Tab PO SCH (20:46)
[2017-08-10] MEDS: Gabapentin 100 MG Cap PO SCH (21:01)
[2017-08-10] MEDS: Gabapentin 600 MG Tab PO SCH (21:01)
[2017-08-10] MEDS: Insulin Detemir 100 Units/ML 3 ML Pen SUBCUT SCH (21:01)
[2017-08-10] MEDS: Magnesium Hydroxide 400 MG/5 ML Susp 30 ML Cup PO SCH (21:10)
[2017-08-10] MEDS: CHLORZOXAZONE 500 MG PO SCH (21:10)
[2017-08-10] MEDS ORDERED: Acetaminophen/HYDROcodone 325-5 MG Tab PO PRN (22:30)
[2017-08-11] MEDS: diphenhydrAMINE 25 MG Cap PO PRN ×3 (03:27→21:30)
[2017-08-11] MEDS: HYDROmorphone 0.5 MG/0.5 ML Syringe IVPUSH PRN ×3 (05:23→13:44)
[2017-08-11] MEDS: Pantoprazole 40 MG Tab.CR PO SCH ×2 (05:23→16:05)
[2017-08-11] MEDS: Insulin Aspart 100 Units/ML 3 ML Pen SUBCUT SCH ×4 (06:36→21:27)
[2017-08-11] MEDS: Lactated Ringers 1,000 ML IV SCH ×2 (06:39→22:04)
--- NOTE | 2017-08-11 08:45 | PCM.SN ---
- Free Text/Narrative Note: Fresh Work Wrapper Layer progress note Subjective: Patient overall doing well throughout the night. Having numerous bowel movements with milk of magnesia and mag citrate that was given last evening. Reports that overall pain has been unchanged throughout the night and continues to be sure pain and right lower quadrant near inguinal ligament. Ambulate without difficulty. Tolerating regular diet until midnight. Denies any nausea or vomiting. Denies any fevers or chills. Objective: Vitals Temperature: 3.7C Heart rate: 60s-80s BP: 120s-140s/60s-80s O2 sats: 92-98 on room air Gen.: No acute distress, alert and oriented Lungs: Clear to auscultation bilaterally Heart: Regular rate and rhythm Abdomen: Soft, minimal tenderness in right inguinal fold approximately usp between the ASIS and pubic symphysis, nondistended, positive bowel sounds in all 4 quadrants Extremities: Moving all extremities without difficulty Laboratory results: WBC: 8.53 Hemoglobin: 14.3 Hematocrit: 41.9 Platelets 164 Sodium: 136 Potassium: 3.8 Chloride: 100 Carbon dioxide: 24 BUN: 10 Creatinine: 1.1 AST: 17 ALT: 26 CT abdomen and pelvis (08/10/17) Impression: 1. An mild increased stool in colon 2. Probable fatty infiltration within the liver 3. No additional abnormality is appreciated on the CT study of the abdomen and pelvis. Nothing acute is appreciated. Assessment/plan 46-year-old female with persistent pelvic pain 1. Pelvic pain - uncertain etiology at this time. Overall unremarkable labs and CT exam. The only thing that was noted on the CT was increased stool burning within the colon. Patient was given laxatives throughout the night and passed large amount of stool but continues to have pain. Unlikely that this is ovarian torsion due to normal white count. Due to persistent pain we will continue to keep patient nothing by mouth and plan for diagnostic laparoscopy with possible lysis of adhesions this morning. Patient reports the pain is not is well controlled on [place] and will switch back to Percocet. 2. Diabetes - patient with moderate control of diabetes and given sliding scale insulin in addition to her home [place] Mazin Stover M.D. 8:51 AM 08/11/17
--- NOTE | 2017-08-11 08:53 | PCM.PREANE ---
Preanesthetic Assessment - Anesthesia/Transfusion/Family Hx Anesthesia History: Prior Anesthesia Reaction Type of Anesthesia Reaction: Excessive Somnolence Family History of Anesthesia Reaction: No Transfusion History: No Prior Transfusion(s) - Review of Systems General: No Symptoms Pulmonary: No Symptoms Cardiovascular: No Symptoms Gastrointestinal: Abdominal Pain (started Thursday night), Constipation (last few days) Neurological: No Symptoms, Seizure (2016) - Physical Assessment NPO Status Date: 08/10/17 NPO Status Time: 17:30 (tomato soup and sandwich) Pulse: 64 O2 Sat by Pulse Oximetry: 92 Respiratory Rate: 16 Blood Pressure: 120/68 Temperature: 98.1 F Vital Signs: Last Vital Signs Temp 98.1 F 08/11/17 03:16 Pulse 64 08/11/17 03:16 Resp 16 08/11/17 03:16 BP 120/68 08/11/17 03:16 Pulse Ox 92 L 08/11/17 03:16 Height: 5 ft 11 in Weight: 106.005 kg ASA Class: 2 Mental Status: Alert & Oriented x3 Airway Class: Mallampati = 1 Dentition: Reports: Normal Dentition Thyro-Mental Finger Breadths: 3 Mouth Opening Finger Breadths: 3 ROM/Head Extension: Full Lungs: Clear to Auscultation, Normal Respiratory Effort Cardiovascular: Regular Rate, Regular Rhythm - Lab Values: Laboratory Last Values WBC 8.53 K/mm3 (3.98-10.04) 08/10/17 12:45 RBC 4.64 M/mm3 (3.98-5.22) 08/10/17 12:45 Hgb 14.3 gm/L (11.2-15.7) 08/10/17 12:45 Hct 41.9 % (34.1-44.9) 08/10/17 12:45 MCV 90.3 fl (79.4-94.8) 08/10/17 12:45 MCH 30.8 pg (25.6-32.2) 08/10/17 12:45 MCHC 34.1 g/dl (32.2-35.5) 08/10/17 12:45 RDW Std Deviation 42.1 fL (36.4-46.3) 08/10/17 12:45 Plt Count 164 K/mm3 (182-369) L 08/10/17 12:45 MPV 10.9 fl (9.4-12.3) 08/10/17 12:45 Neut % (Auto) 78.5 % (34.0-71.1) H 08/10/17 12:45 Lymph % (Auto) 13.0 % (19.3-51.7) L 08/10/17 12:45 [place]ates % (Auto) 6.1 % (4.7-12.5) 08/10/17 12:45 Eos % (Auto) 1.2 (0.7-5.8) 08/10/17 12:45 Baso % (Auto) 0.4 % (0.1-1.2) 08/10/17 12:45 Neut # (Auto) 6.70 K/mm3 (1.56-6.13) H 08/10/17 12:45 Lymph # (Auto) 1.11 K/mm3 (1.18-3.74) L 08/10/17 12:45 [place]ates # (Auto) 0.52 K/mm3 (0.24-0.36) H 08/10/17 12:45 Eos # (Auto) 0.10 K/mm3 (0.04-0.36) 08/10/17 12:45 Baso # (Auto) 0.03 K/mm3 (0.01-0.08) 08/10/17 12:45 Sodium 136 mEq/L (136-145) 08/10/17 12:45 Potassium 3.8 mEq/L (3.5-5.1) 08/10/17 12:45 Chloride 100 mEq/L (98-107) 08/10/17 12:45 Carbon Dioxide 24 mEq/L (21-32) 08/10/17 12:45 Anion Gap 15.8 (5-15) H 08/10/17 12:45 BUN 10 mg/dL (7-18) 08/10/17 12:45 Creatinine 1.1 mg/dL (0.55-1.02) H 08/10/17 12:45 Est Cr Clr Drug Dosing 72.95 mL/min 08/10/17 12:45 Estimated GFR (MDRD) 54 mL/min (>60) 08/10/17 12:45 BUN/Creatinine Ratio 9.1 (14-18) L 08/10/17 12:45 Glucose 425 mg/dL (74-106) H 08/10/17 12:45 POC Glucose 244 mg/dL (70-105) H 08/11/17 06:07 Calcium 9.2 mg/dL (8.5-10.1) 08/10/17 12:45 Total Bilirubin 0.3 mg/dL (0.2-1.0) 08/10/17 12:45 AST 17 U/L (15-37) 08/10/17 12:45 ALT 26 U/L (14-59) 08/10/17 12:45 Alkaline Phosphatase 95 U/L (46-116) 08/10/17 12:45 Total Protein 7.3 g/dl (6.4-8.2) 08/10/17 12:45 Albumin 3.3 g/dl (3.4-5.0) L 08/10/17 12:45 Globulin 4.0 gm/dL 08/10/17 12:45 Albumin/Globulin Ratio 0.8 (1-2) L 08/10/17 12:45 FBS today 244 - Allergies Allergies/Adverse Reactions: Allergies Allergy/AdvReac Type Severity Reaction Status Date / Time fluconazole [From Diflucan] Allergy Cannot Verified 01/26/17 10:22 Remember Iodinated Contrast- Oral and Allergy Hives Verified 08/10/17 13:34 IV Dye latex Allergy Itching Verified 01/26/17 10:22 meperidine [From Demerol] Allergy Cannot Verified 01/26/17 10:22 Remember naproxen [From Aleve] Allergy Cannot Verified 01/26/17 10:22 Remember iv dye Allergy Hives Uncoded 08/10/17 13:34 - Blood Blood Available: No - Acknowledgements Anesthesia Type Planned: General Anesthesia Pt an Appropriate Candidate for the Planned Anesthesia: Yes Alternatives and Risks of Anesthesia Discussed w Pt/Guardian: Yes Pt/Guardian Understands and Agrees with Anesthesia Plan: Yes PreAnesthesia Questionnaire HEENT History: Reports: Impaired Vision, Other (See Below) Other HEENT History: glasses Cardiovascular History: Reports: None Respiratory History: Reports: None Gastrointestinal History: Reports: GERD, Hiatal Hernia, Irritable Bowel Syndrome , PUD Genitourinary History: Reports: Renal Calculus, Other (See Below) Other Genitourinary History: KIDNEY/URETER SURGERY PROCESS ARCHITECT History: Reports: , Other (See Below) Other OB/BYN History: DYSPAREUNIA, DYSMENORRHEA, LAPAROSCOPY X2, ESSURE PROCEDURE, ADENOMYOSIS, IRREGULAR MENSES, PELVIC PAIN Musculoskeletal History: Reports: Fibromyalgia, Other (See Below) Other Musculoskeletal History: R ELBOW FRACTURE, BILATERAL ARM FRACTURES, KNEE ARTHROSCOPY L AND R X2, PATELLAR RECONSTRUCTION Neurological History: Reports: Neuropathy, Diabetic, Seizure Psychiatric History: Reports: Anxiety, Depression, Other (See Below) Other Psychiatric History: occasional Endocrine/Metabolic History: Reports: Diabetes, Gestational, Diabetes, Type II Hematologic History: Reports: None Immunologic History: Reports: None Oncologic (Cancer) History: Reports: None Dermatologic History: Reports: None - Infectious Disease History Infectious Disease History: Reports: Chicken Pox, Shingles - Past Surgical History HEENT Surgical History: Reports: None GI Surgical History: Reports: Colonoscopy, EGD Female Surgical History: Reports: Section, Hysterectomy Male Surgical History: Reports: Kidney Stone Extraction Endocrine Surgical History: Reports: None Neurological Surgical History: Reports: None Musculoskeletal Surgical History: Reports: Arthroscopic Knee, Arthroscopic Procedure, Other (See Below) (elbow surgery) Dermatological Surgical History: Reports: None - Past Imaging History Past Imaging History: Reports: CAT Scan - SUBSTANCE USE Smoking Status *Q: Former Smoker (quit 2006) Tobacco Use Within Last Twelve Months: No Second Hand Smoke Exposure: Yes Days Per Week of Alcohol Use: 0 Number of Drinks Per Day: 0 Total Drinks Per Week: 0 Recreational Drug Use History: No Recreational Drug Type: Reports: Marijuana/Hashish (past- used last 3 months ago ) - HOME MEDS Home Medications: Home Meds Chlorzoxazone [Parafon Forte] 500 mg PO BID 01/26/17 [History] Gabapentin 800 mg PO QID 01/26/17 [History] Insulin Glarg,Human.Rec.Analog [LantUS Solostar] 40 units SUBCUT BID 08/10/17 [ History] Omeprazole 40 mg PO BIDAC 08/10/17 [History] Sucralfate 1 gm PO BID 08/10/17 [History] - CURRENT (IN HOUSE) MEDS Current Meds: Current Medications Acetaminophen (Tylenol) 650 mg PO Q6H PRN PRN Reason: Pain (Mild 1-3)/fever Hydrocodone Bitart/Acetaminophen ([place] 325-5 Mg) 2 tab PO Q6H PRN PRN Reason: Pain (moderate 4-6) Last Admin: 08/10/17 21:57 Dose: 2 tab Diphenhydramine HCl (Benadryl) 25 mg PO Q6H PRN PRN Reason: Itching Last Admin: 08/11/17 03:27 Dose: 25 mg Docusate Sodium (Colace) 100 mg PO BID PRN PRN Reason: Constipation Gabapentin (Neurontin) 600 mg PO BID [facility] Last Admin: 08/10/17 21:01 Dose: 600 mg Gabapentin (Neurontin) 200 mg PO BID [facility] Last Admin: 08/10/17 21:01 Dose: 200 mg Hydromorphone HCl (Dilaudid) 0.25 mg IVPUSH Q2H PRN PRN Reason: Pain (severe 7-10) Last Admin: 08/11/17 05:23 Dose: 0.25 mg Lactated Ringer's (Ringers, Lactated) 1,000 mls @ 125 mls/hr IV ASDIRECTED [facility] Last Admin: 08/11/17 06:39 Dose: 125 mls/hr Influenza Virus Vaccine (Pharmacy To Dose - Influenza Vaccine) 1 each IM ONETIME ONE Stop: 08/11/17 13:00 Insulin Aspart (Novolog) 0 unit SUBCUT QIDACANDBED [facility] PRN Reason: Protocol Last Admin: 08/11/17 06:36 Dose: 2 units Insulin Detemir (Levemir) 40 unit SUBCUT BID [facility] Last Admin: 08/10/17 21:01 Dose: 40 units Magnesium Hydroxide (Milk Of Magnesia) 30 ml PO BID [facility] Last Admin: 08/10/17 21:10 Dose: 30 ml Ondansetron HCl (Zofran Odt) 4 mg PO Q4H PRN PRN Reason: nausea, able to take PO [facility]op[facility]ole [facility] Last Admin: 08/11/17 05:23 Dose: 40 mg Chlorzoxazone [ Parafon Forte] 500 Mg 0 each PO BID [facility] Last Admin: 08/10/17 21:10 Dose: Not Given Sodium Chloride (Saline Flush) 10 ml FLUSH ASDIRECTED PRN PRN Reason: Keep Vein Open Sucralfate (Carafate) 1 gm PO BID [facility] Last Admin: 08/10/17 20:46 Dose: 1 gm Discontinued Medications Diatrizoate Meglum/Diatrizoate Sod (Gastrografin 37%) 90 ml PO ONETIME ONE Stop: 08/10/17 13:33 Last Admin: 08/10/17 13:47 Dose: 90 ml Diphenhydramine HCl (Benadryl) 50 mg PO ONETIME ONE Stop: 08/10/17 12:58 Last Admin: 08/10/17 13:30 Dose: 50 mg Diphenhydramine HCl (Benadryl) 25 mg PO ONETIME ONE Stop: 08/10/17 18:16 Last Admin: 08/10/17 18:43 Dose: 25 mg Diphenhydramine HCl (Benadryl) Confirm Administered Dose 50 mg .ROUTE .STK-MED ONE Stop: 08/10/17 18:20 Last Admin: 08/10/17 18:38 Dose: Not Given Sodium Chloride (Normal Saline) 100 mls @ 40 mls/hr IV ASDIRECTED [facility] Stop: 08/10/17 18:00 Last Admin: 08/10/17 13:47 Dose: 40 mls/hr Influenza Virus Vaccine (Flulaval Quad [id number]) 60 mcg IM .ONCE ONE Stop: 08/10/17 13:16 Iopamidol (Isovue-300 (61%)) 100 ml IVPUSH ONETIME ONE Stop: 08/10/17 13:33 Last Admin: 08/10/17 13:47 Dose: 100 ml Magnesium Citrate (Citrate Of Magnesia) 300 ml PO ONETIME ONE Stop: 08/10/17 18:30 Last Admin: 08/10/17 18:49 Dose: 300 ml Magnesium Hydroxide (Milk Of Magnesia) 30 ml PO Q12H [facility] Last Admin: 08/10/17 20:04 Dose: Not Given Magnesium Hydroxide (Milk Of Magnesia) 30 ml PO ONETIME ONE Stop: 08/10/17 16:19 Last Admin: 08/10/17 16:31 Dose: 30 ml Methylprednisolone Sodium Succinate (Solu-Medrol) 40 mg IVPUSH ONETIME ONE Stop: 08/10/17 12:58 Last Admin: 08/10/17 13:27 Dose: 40 mg Oxycodone/Acetaminophen (Percocet 325-5 Mg) 2 tab PO Q6H PRN PRN Reason: Pain (moderate 4-6) Last Admin: 08/10/17 16:23 Dose: 2 tab Pneumococcal Polyvalent Vaccine (Pneumovax 23) 0.5 ml IM .ONCE ONE Stop: 08/10/17 13:00 Sodium Chloride (Saline Flush) 10 ml FLUSH ONETIME ONE Stop: 08/10/17 13:33 Last Admin: 08/10/17 13:47 Dose: 10 ml
[2017-08-11] MEDS: Acetaminophen/oxyCODONE 325-5 MG Tab PO PRN ×2 (09:39→16:02)
[2017-08-11] MEDS ORDERED: Rocuronium 50 MG/5 ML Vial ONE (09:43)
[2017-08-11] MEDS ORDERED: Midazolam 1 MG/ML 2 ML SDV ONE ×2 (09:43→12:45)
[2017-08-11] MEDS ORDERED: Lidocaine 2% 100 MG/5 ML Syringe ONE (09:43)
[2017-08-11] MEDS ORDERED: Dexamethasone 4 MG/ML 5 ML MDV ONE (09:43)
[2017-08-11] MEDS ORDERED: Ondansetron 4 MG/2 ML SDV ONE ×2 (09:43→13:33)
[2017-08-11] MEDS ORDERED: fentaNYL 250 MCG/5 ML SDV ONE (09:43)
[2017-08-11] MEDS ORDERED: Propofol 200 MG/20 ML SDV ONE (10:10)
[2017-08-11] MEDS ORDERED: Bupivacaine 0.5% 30 ML SDV ONE (10:10)
[2017-08-11] MEDS: Insulin Detemir 100 Units/ML 3 ML Pen SUBCUT SCH ×2 (10:21→21:23)
[2017-08-11] MEDS ORDERED: Neostigmine Methylsulfate 1 MG/ML 5 ML Syringe ONE (12:27)
[2017-08-11] MEDS ORDERED: Ketorolac 30 MG/ML SDV ONE (12:31)
[2017-08-11] MEDS ORDERED: HYDROmorphone 0.5 MG/0.5 ML Syringe ONE (12:32)
--- NOTE | 2017-08-11 12:32 | PCM.OPNOTE ---
- General Post-Op/Procedure Note Date of Surgery/Procedure: 08/11/17 Operative Procedure(s): Laparoscopy with right salpingectomy and lysis of adhesions Findings: Right sided hydrosalpinx. Right side ovary normal in appearance. Small amount of adhesion of bowel to anterior pelvis. Left side ovary normal in appearance. No evidence of tubal remnants on the left side. Overall normal appearing bowel , normal appearing appendix. Pre Op Diagnosis: Right-sided pelvic pain Post-Op Diagnosis: Right-sided hydrosalpinx and pelvic pain Anesthesia Technique: General ET Tube Primary Surgeon: Mazin Stover Secondary Surgeon: Prakash Johnson Anesthesia Provider: Kt Ramey Reason Health Services Administrator Was Necessary: nursing home assistant was necessary due to no other laparoscopically trained custody assistant available. Role of Health Services Administrator: Assisted with laparoscopy including exploration of the abdomen and pelvis and with removal of the adnexal structures. Pathology: Right fallopian tube Fluid Replacement, Intraop: 1,600 Output, Urine Amount: 100 EBL in mLs: 5 Complications: None Condition: Good Free Text/Narrative:: Intake & Output 08/10/17 08/11/17 08/11/17 22:59 06:59 14:59 Intake Total 270 2200 240 Output Total 300 1850 Balance -30 350 240 Procedure in detail: Patient was evaluated this morning on the medical/surgical floor in her room and patient continued to complain of right sided sharp pelvic pain. This is unresolved with multiple bowel movements. Because of her significant continued pain it was felt that a diagnostic laparoscopy with possible lysis of adhesions and removal of affected structures would be indicated. Discussed the risks, benefits and alternatives of the procedure with the patient. Patient consented to having a diagnostic laparoscopy with possible lysis of adhesions, possible ovarian cystectomy, possible oophorectomy of the affected side. Had also discussed with patient and removal of affected structures if indicated. The risks included bleeding, infection, injury to surrounding structures and failure to relieve pain. Patient signed the consent. Patient was taken back to operating room #2 with an IV running. She was given general anesthesia with an endotracheal tube that was placed without difficulty. She was placed in dorsal lithotomy position using yellowfin stirrups. She had a Seay catheter that was placed with return of urine. She was prepped and draped in the normal sterile fashion. A timeout was performed to ensure the correct patient, surgical site and surgery was being performed and agreed upon by the surgical staff. Attention was then turned to the abdomen and the inferior umbilicus was injected with 0.5% Marcaine. A stab incision was made with a scalpel. The abdomen was tented upward using blunt traction with gauze and a Veress needle was inserted through the incision into the peritoneal cavity. Insufflation was started and the opening pressure was noted to be 8 mmHg. The abdomen was insufflated to 15 mmHg. A 5 mm laparoscope was then inserted with direct visual guidance with the trocar into the abdomen. A global view of the abdomen was overall normal in appearance. Attention was then turned to the suprapubic area. The midline of the section scar was injected with 0.5% Marcaine and a stab incision was made using a scalpel. A 5 mm trocar was inserted under direct visual guidance. The abdomen was then further explored and there was noted to be adhesions of the bowel to the anterior pelvic wall as well as to the right side of the pelvic wall. Attention was then turned to the right side of the abdomen and the appendix was identified in a retrocecal position and appeared normal. Attention was then turned to the right pelvic sidewall to explore the area where the patient was complaining of the most pain. There is noted to be a right-sided hydrosalpinx. The ovary on the right side was normal in appearance. There is no evidence of a herniation at the internal ring on exam. This is felt to be the possible cause of her pain with the distention of the tube and decision was made to remove the hydrosalpinx. Attention was then turned to the right lower quadrant and the area free of any blood vessels approximately residential from a ASIS to the umbilicus was identified. The overlying skin was injected with 0.5% Marcaine and a stab incision was made with the scalpel. A 5 mm trocar was inserted under direct visual guidance without difficulty. A Harmonic scalpel was then inserted and the right-sided hydrosalpinx was removed using the Harmonic scalpel. The anterior pelvic wall adhesions were taken down using the Harmonic scalpel. There was a small amount of dark brown fluid noted in the posterior cul-de-sac. Attention was then turned to the left pelvic sidewall and the left ovary was identified and was normal in appearance. There was no apparent remnants of fallopian tube on the left side. The right hydrosalpinx that was dissected from the underlying tissue was then removed from the suprapubic port using a Angie clamp. The case was completed at this time. The suprapubic port site was inspected and noted to be free of any bleeding. The right lower quadrant trocar was removed under direct visual guidance and no bleeding was identified . The insufflation was released from the abdomen. The umbilical trochar was removed and no additional bleeding was noted. The port sites were closed using interrupted sutures of 4-0 Monocryl and Dermabond was applied over the incisions. The patient was awoken and taken back to the PACU and will be observed overnight because she drove herself to the hospital and there is no one that is available to pick her up. Lap, sponge, and needle count were correct at the end of the case.
[2017-08-11] MEDS ORDERED: fentaNYL 100 MCG/2 ML SDV ONE (12:33)
[2017-08-11] MEDS ORDERED: fentaNYL 100 MCG/2 ML SDV IVPUSH PRN (12:35)
--- NOTE | 2017-08-11 12:39 | PCM.POSTAN ---
POST ANESTHESIA ASSESSMENT - MENTAL STATUS Mental Status: Alert, Oriented - VITAL SIGNS Pulse Rate: 100 SaO2: 100 Resp Rate: 10 Blood Pressure: 134/70 Temperature: 98 F - RESPIRATORY Respiratory Status: Respiratory Rate WNL, Airway Patent, O2 Saturation Stable - CARDIOVASCULAR CV Status: Pulse Rate WNL, Blood Pressure Stable - GASTROINTESTINAL GI Status: No Symptoms - PAIN Pain Score: 6 - POST OP HYDRATION Hydration Status: Adequate & Stable
[2017-08-11] MEDS ORDERED: Sodium Chloride 0.9% 10 ML Syringe FLUSH PRN (13:12)
[2017-08-11] MEDS ORDERED: Magnesium Hydroxide 400 MG/5 ML Susp 30 ML Cup PO ONE (15:37)
[2017-08-11] MEDS: Gabapentin 100 MG Cap PO SCH ×2 (16:09→21:26)
[2017-08-11] MEDS: Sucralfate 1 GM Tab PO SCH ×2 (16:09→21:23)
[2017-08-11] MEDS: CHLORZOXAZONE 500 MG PO SCH ×2 (16:17→21:27)
[2017-08-11] MEDS: Gabapentin 600 MG Tab PO SCH ×2 (16:23→21:26)
[2017-08-11] MEDS ORDERED: Magnesium Hydroxide 400 MG/5 ML Susp 30 ML Cup PO PRN (16:56)
[2017-08-11] MEDS: traMADol 50 MG Tab PO PRN (18:34)
[2017-08-11] MEDS: Magnesium Hydroxide 400 MG/5 ML Susp 30 ML Cup PO SCH (19:52)
[2017-08-12] MEDS: traMADol 50 MG Tab PO PRN ×2 (00:15→04:41)
[2017-08-12] MEDS: Insulin Aspart 100 Units/ML 3 ML Pen SUBCUT SCH (06:53)
[2017-08-12] MEDS: Pantoprazole 40 MG Tab.CR PO SCH (06:53)
[2017-08-12] MEDS: Lactated Ringers 1,000 ML IV SCH (06:56)
[2017-08-12 08:18] VITALS: BP 135/78
[2017-08-12] MEDS: Insulin Detemir 100 Units/ML 3 ML Pen SUBCUT SCH (08:37)
[2017-08-12] MEDS: Gabapentin 100 MG Cap PO SCH (08:37)
[2017-08-12] MEDS: Gabapentin 600 MG Tab PO SCH (08:37)
[2017-08-12] MEDS: Sucralfate 1 GM Tab PO SCH (08:37)
[2017-08-12] MEDS: CHLORZOXAZONE 500 MG PO SCH (08:38)
--- NOTE | 2017-08-12 09:48 | PCM.SURGPN ---
- General Info Date of Service: 08/12/17 Date of Surgery/Procedure: 08/11/17 (Laparoscopic salpingectomy of right hydrosalpinx) POD#: 1 Post-Op Diagnosis: Right-sided hydrosalpinx with pelvic pain Admission Diagnosis/Problem: Right lower quadrant pain Functional Status: Reports: Pain Controlled, Tolerating Diet, Ambulating, Urinating - Review of Systems General: Reports: No Symptoms. Denies: Fever, Chills Pulmonary: Reports: No Symptoms. Denies: Shortness of Breath, Cough Cardiovascular: Reports: No Symptoms. Denies: Chest Pain Gastrointestinal: Reports: No Symptoms, Abdominal Pain (Muscle soreness and minimal pain at laparoscopic port sites), Flatus. Denies: Constipation, Decreased Appetite, Diarrhea Genitourinary: Reports: No Symptoms. Denies: Dysuria, Frequency Musculoskeletal: Reports: No Symptoms - Patient Data Vitals - Most Recent: Last Vital Signs Temp 36.7 C 08/12/17 07:37 Pulse 85 08/12/17 07:37 Resp 19 08/12/17 07:37 BP 135/78 08/12/17 07:37 Pulse Ox 96 08/12/17 07:37 Weight - Most Recent: 108.908 kg I&O - Last 24 Hours: Intake & Output 08/11/17 08/12/17 08/12/17 22:59 06:59 14:59 Intake Total 1530 2900 1764 Output Total 400 3200 Balance 1130 -300 1764 Lab Results Last 24 Hrs: Laboratory Results - last 24 hr 08/11/17 08/11/17 08/11/17 Range/Units 11:14 16:45 20:26 POC Glucose 172 H 231 H 294 H (70-105) mg/dL 08/12/17 Range/Units 05:48 POC Glucose 202 H (70-105) mg/dL Med Orders - Current: Current Medications Acetaminophen (Tylenol) 650 mg PO Q6H PRN PRN Reason: Pain (Mild 1-3)/fever Diphenhydramine HCl (Benadryl) 25 mg PO Q6H PRN PRN Reason: Itching Last Admin: 08/11/17 21:30 Dose: 25 mg Docusate Sodium (Colace) 100 mg PO BID PRN PRN Reason: Constipation Gabapentin (Neurontin) 600 mg PO BID [facility] Last Admin: 08/12/17 08:37 Dose: 600 mg Gabapentin (Neurontin) 200 mg PO BID [facility] Last Admin: 08/12/17 08:37 Dose: 200 mg Hydromorphone HCl (Dilaudid) 0.25 mg IVPUSH Q2H PRN PRN Reason: Pain (severe 7-10) Last Admin: 08/11/17 05:23 Dose: 0.25 mg Insulin Aspart (Novolog) 0 unit SUBCUT QIDACANDBED [facility] PRN Reason: Protocol Last Admin: 08/12/17 06:53 Dose: 2 units Insulin Detemir (Levemir) 40 unit SUBCUT BID [facility] Last Admin: 08/12/17 08:37 Dose: 40 units Magnesium Hydroxide (Milk Of Magnesia) 30 ml PO BID PRN PRN Reason: Constipation Ondansetron HCl (Zofran Odt) 4 mg PO Q4H PRN PRN Reason: nausea, able to take PO [facility]op[facility] Last Admin: 08/12/17 06:53 Dose: 40 mg Chlorzoxazone [ Parafon Forte] 500 Mg 0 each PO BID [facility] Last Admin: 08/12/17 08:38 Dose: Not Given Sodium Chloride (Saline Flush) 10 ml FLUSH ASDIRECTED PRN PRN Reason: Keep Vein Open Sodium Chloride (Saline Flush) 10 ml FLUSH ASDIRECTED PRN PRN Reason: Keep Vein Open Sucralfate (Carafate) 1 gm PO BID [facility] Last Admin: 08/12/17 08:37 Dose: 1 gm Tramadol HCl (Ultram) 50 mg PO Q4H PRN PRN Reason: Pain Last Admin: 08/12/17 04:41 Dose: 50 mg Discontinued Medications Hydrocodone Bitart/Acetaminophen ([place] 325-5 Mg) 2 tab PO Q6H PRN PRN Reason: Pain (moderate 4-6) Last Admin: 08/10/17 21:57 Dose: 2 tab Bupivacaine HCl (Marcaine 0.5%) Confirm Administered Dose 30 ml .ROUTE .STK-MED ONE Stop: 08/11/17 10:11 Last Admin: 08/11/17 11:46 Dose: 10 ml Dexamethasone (Dexamethasone) Confirm Administered Dose 20 mg .ROUTE .STK-MED ONE Stop: 08/11/17 09:44 Diatrizoate Meglum/Diatrizoate Sod (Gastrografin 37%) 90 ml PO ONETIME ONE Stop: 08/10/17 13:33 Last Admin: 08/10/17 13:47 Dose: 90 ml Diphenhydramine HCl (Benadryl) 50 mg PO ONETIME ONE Stop: 08/10/17 12:58 Last Admin: 08/10/17 13:30 Dose: 50 mg Diphenhydramine HCl (Benadryl) 25 mg PO ONETIME ONE Stop: 08/10/17 18:16 Last Admin: 08/10/17 18:43 Dose: 25 mg Diphenhydramine HCl (Benadryl) Confirm Administered Dose 50 mg .ROUTE .STK-MED ONE Stop: 08/10/17 18:20 Last Admin: 08/10/17 18:38 Dose: Not Given Fentanyl (Sublimaze) Confirm Administered Dose 250 mcg .ROUTE .STK-MED ONE Stop: 08/11/17 09:44 Fentanyl (Sublimaze) 50 mcg IVPUSH Q5M PRN PRN Reason: Pain Stop: 08/11/17 12:36 Last Admin: 08/11/17 12:50 Dose: 50 mcg Fentanyl (Sublimaze) Confirm Administered Dose 100 mcg .ROUTE .STK-MED ONE Stop: 08/11/17 12:34 Last Admin: 08/11/17 12:38 Dose: 100 mcg Glycopyrrolate () Confirm Administered Dose 1 mg .ROUTE .STK-MED ONE Stop: 08/11/17 12:28 Hydromorphone HCl (Dilaudid) 0.5 mg IVPUSH Q15M PRN PRN Reason: severe pain Stop: 08/11/17 12:36 Last Admin: 08/11/17 13:44 Dose: 0.5 mg Hydromorphone HCl (Dilaudid) Confirm Administered Dose 0.5 mg .ROUTE .STK-MED ONE Stop: 08/11/17 12:33 Last Admin: 08/11/17 16:18 Dose: Not Given Lactated Ringer's (Ringers, Lactated) 1,000 mls @ 125 mls/hr IV ASDIRECTED [facility] Last Admin: 08/12/17 06:56 Dose: 125 mls/hr Sodium Chloride (Normal Saline) 100 mls @ 40 mls/hr IV ASDIRECTED [facility] Stop: 08/10/17 18:00 Last Admin: 08/10/17 13:47 Dose: 40 mls/hr Influenza Virus Vaccine (Pharmacy To Dose - Influenza Vaccine) 1 each IM ONETIME ONE Stop: 08/11/17 13:00 Influenza Virus Vaccine (Flulaval Quad [id number]) 60 mcg IM .ONCE ONE Stop: 08/10/17 13:16 Iopamidol (Isovue-300 (61%)) 100 ml IVPUSH ONETIME ONE Stop: 08/10/17 13:33 Last Admin: 08/10/17 13:47 Dose: 100 ml Ketorolac Tromethamine (Toradol) Confirm Administered Dose 30 mg .ROUTE .STK- MED ONE Stop: 08/11/17 12:32 Last Admin: 08/11/17 12:39 Dose: 30 mg Lidocaine HCl (Xylocaine 2%) Confirm Administered Dose 200 mg .ROUTE .STK-MED ONE Stop: 08/11/17 09:44 Magnesium Citrate (Citrate Of Magnesia) 300 ml PO ONETIME ONE Stop: 08/10/17 18:30 Last Admin: 08/10/17 18:49 Dose: 300 ml Magnesium Hydroxide (Milk Of Magnesia) 30 ml PO Q12H [facility] Last Admin: 08/10/17 20:04 Dose: Not Given Magnesium Hydroxide (Milk Of Magnesia) 30 ml PO BID [facility] Last Admin: 08/11/17 19:52 Dose: Not Given Magnesium Hydroxide (Milk Of Magnesia) 30 ml PO ONETIME ONE Stop: 08/10/17 16:19 Last Admin: 08/10/17 16:31 Dose: 30 ml Magnesium Hydroxide (Milk Of Magnesia) 30 ml PO ONETIME ONE Stop: 08/11/17 15:38 Last Admin: 08/11/17 16:05 Dose: 30 ml Methylprednisolone Sodium Succinate (Solu-Medrol) 40 mg IVPUSH ONETIME ONE Stop: 08/10/17 12:58 Last Admin: 08/10/17 13:27 Dose: 40 mg Midazolam HCl (Versed 1 Mg/Ml) Confirm Administered Dose 2 mg .ROUTE .STK-MED ONE Stop: 08/11/17 09:44 Midazolam HCl (Versed 1 Mg/Ml) Confirm Administered Dose 2 mg .ROUTE .STK-MED ONE Stop: 08/11/17 12:46 Last Admin: 08/11/17 12:51 Dose: 2 mg Neostigmine Methylsulfate (Neostigmine) Confirm Administered Dose 5 mg .ROUTE .STK-MED ONE Stop: 08/11/17 12:28 Ondansetron HCl (Zofran) Confirm Administered Dose 4 mg .ROUTE .STK-MED ONE Stop: 08/11/17 09:44 Ondansetron HCl (Zofran) Confirm Administered Dose 4 mg .ROUTE .STK-MED ONE Stop: 08/11/17 13:34 Last Admin: 08/11/17 12:42 Dose: 4 mg Oxycodone/Acetaminophen (Percocet 325-5 Mg) 2 tab PO Q6H PRN PRN Reason: Pain (moderate 4-6) Last Admin: 08/10/17 16:23 Dose: 2 tab Oxycodone/Acetaminophen (Percocet 325-5 Mg) 2 tab PO Q6H PRN PRN Reason: Pain (moderate 4-6) Last Admin: 08/11/17 16:02 Dose: 2 tab Pneumococcal Polyvalent Vaccine (Pneumovax 23) 0.5 ml IM .ONCE ONE Stop: 08/10/17 13:00 Propofol (Diprivan 20 Ml) Confirm Administered Dose 400 mg .ROUTE .STK-MED ONE Stop: 08/11/17 10:11 Rocuronium [place] (Zemuron) Confirm Administered Dose 50 mg .ROUTE .STK-MED ONE Stop: 08/11/17 09:44 Sodium Chloride (Saline Flush) 10 ml FLUSH ONETIME ONE Stop: 08/10/17 13:33 Last Admin: 08/10/17 13:47 Dose: 10 ml - Problem List & Annotations (1) Hydrosalpinx SNOMED Code(s): 35255076 Code(s): N70.11 - CHRONIC SALPINGITIS Status: Acute Current Visit: Yes (2) Abdominal pain SNOMED Code(s): 78187477 Code(s): R10.9 - UNSPECIFIED ABDOMINAL PAIN Status: Acute Current Visit: No (3) Postoperative pain SNOMED Code(s): 158034912 Code(s): G89.18 - OTHER ACUTE POSTPROCEDURAL PAIN Status: Acute Current Visit: No (4) Type 2 diabetes mellitus SNOMED Code(s): 65769326 Code(s): E11.9 - TYPE 2 DIABETES MELLITUS WITHOUT COMPLICATIONS Status: Acute Current Visit: No - My Orders Last 24 Hours: Active Orders 24 hr Category Date Time Status Communication Order [RC] ASDIRECTED Care 08/11/17 12:36 Active Diabetes Education [RC] DAILY Care 08/11/17 10:02 Active Notify Provider Laboratory Res [RC] ASDIRECTED Care 08/11/17 10:03 Active Notify Provider [RC] ASDIRECTED Care 08/11/17 12:36 Active Oxygen Therapy [RC] ASDIRECTED Care 08/11/17 12:36 Active Procedure Prep Instructions [RC] PER UNIT ROUTINE Care 08/11/17 10:02 Active Pulse Oximetry [RC] ASDIRECTED Care 08/11/17 12:36 Active Ready for Discharge [RC] PER UNIT ROUTINE Care 08/12/17 09:44 Ordered Urinary Catheter Assessment [RC] ASDIRECTED Care 08/11/17 12:11 Active [place] [employer] Diet [DIET] Diet 08/11/17 Dinner Active Magnesium Hydroxide [Milk of Magnesia] Med 08/11/17 16:56 Active 30 ml PO BID PRN Sodium Chloride 0.9% [Saline Flush] Med 08/11/17 13:12 Active 10 ml FLUSH ASDIRECTED PRN traMADol [Ultram] Med 08/11/17 16:55 Active 50 mg PO Q4H PRN Convert IV to Saline Lock [OM.PC] Routine Oth 08/11/17 13:12 Ordered Glucose Management Sub Q Reflex [OM.PC] Routine Oth 08/11/17 10:01 Ordered Schedule Procedure [COMM] Routine Oth 08/11/17 10:04 Ordered Sequential Compression Device [OM.PC] Per Unit Routine Oth 08/11/17 10:03 Ordered Medication Orders Acetaminophen (Tylenol) 650 mg PO Q6H PRN PRN Reason: Pain (Mild 1-3)/fever Diphenhydramine HCl (Benadryl) 25 mg PO Q6H PRN PRN Reason: Itching Last Admin: 08/11/17 21:30 Dose: 25 mg Admin: 08/11/17 15:06 Dose: 25 mg Admin: 08/11/17 03:27 Dose: 25 mg Docusate Sodium (Colace) 100 mg PO BID PRN PRN Reason: Constipation Gabapentin (Neurontin) 600 mg PO BID [facility] Last Admin: 08/12/17 08:37 Dose: 600 mg Admin: 08/11/17 21:26 Dose: 600 mg Admin: 08/11/17 16:23 Dose: 600 mg Admin: 08/10/17 21:01 Dose: 600 mg Gabapentin (Neurontin) 200 mg PO BID [facility] Last Admin: 08/12/17 08:37 Dose: 200 mg Admin: 08/11/17 21:26 Dose: 200 mg Admin: 08/11/17 16:09 Dose: 200 mg Admin: 08/10/17 21:01 Dose: 200 mg Hydromorphone HCl (Dilaudid) 0.25 mg IVPUSH Q2H PRN PRN Reason: Pain (severe 7-10) Last Admin: 08/11/17 05:23 Dose: 0.25 mg Admin: 08/10/17 23:50 Dose: 0.25 mg Admin: 08/10/17 20:53 Dose: 0.25 mg Admin: 08/10/17 13:22 Dose: 0.25 mg Insulin Aspart (Novolog) 0 unit SUBCUT QIDACANDBED [facility] PRN Reason: Protocol Last Admin: 08/12/17 06:53 Dose: 2 units Admin: 08/11/17 21:27 Dose: 3 units Admin: 08/11/17 16:53 Dose: 2 units Admin: 08/11/17 16:17 Dose: Admin: 08/11/17 06:36 Dose: 2 units Admin: 08/10/17 21:54 Dose: 5 units Admin: 08/10/17 17:30 Dose: 3 units Insulin Detemir (Levemir) 40 unit SUBCUT BID [facility] Last Admin: 08/12/17 08:37 Dose: 40 units Admin: 08/11/17 21:23 Dose: 40 units Admin: 08/11/17 10:21 Dose: 40 units Admin: 08/10/17 21:01 Dose: 40 units Magnesium Hydroxide (Milk Of Magnesia) 30 ml PO BID PRN PRN Reason: Constipation Ondansetron HCl (Zofran Odt) 4 mg PO Q4H PRN PRN Reason: nausea, able to take PO Pantoprazole Sodium (Protonix) 40 mg PO BIDAC [facility] Last Admin: 08/12/17 06:53 Dose: 40 mg Admin: 08/11/17 16:05 Dose: 40 mg Admin: 08/11/17 05:23 Dose: 40 mg Chlorzoxazone [ Parafon Forte] 500 Mg 0 each PO BID [facility] Last Admin: 08/12/17 08:38 Dose: Admin: 08/11/17 21:27 Dose: Admin: 08/11/17 16:17 Dose: Admin: 08/10/17 21:10 Dose: Sodium Chloride (Saline Flush) 10 ml FLUSH ASDIRECTED PRN PRN Reason: Keep Vein Open Sodium Chloride (Saline Flush) 10 ml FLUSH ASDIRECTED PRN PRN Reason: Keep Vein Open Sucralfate (Carafate) 1 gm PO BID [facility] Last Admin: 08/12/17 08:37 Dose: 1 gm Admin: 08/11/17 21:23 Dose: 1 gm Admin: 08/11/17 16:09 Dose: 1 gm Admin: 08/10/17 20:46 Dose: 1 gm Tramadol HCl (Ultram) 50 mg PO Q4H PRN PRN Reason: Pain Last Admin: 08/12/17 04:41 Dose: 50 mg Admin: 08/12/17 00:15 Dose: 50 mg Admin: 08/11/17 18:34 Dose: 50 mg
--- NOTE | 2017-08-12 09:59 | PCM.SN ---
- Free Text/Narrative Note: Post Op Note S: Patient reports [feeling well overall.] Pain [minimal and controlled with oral medications.] Tolerating [regular diet.] Reports [passing] flatus. Voiding [without difficulty.] Ambulating [without difficulty] O: Vitals Temp: [30 6.7C] HR: [60s-90s] BP: [100s-160s/]50s-90s UOP: [3800] mL Gen: [No acute distress, alert and oriented] Lungs: [Clear to auscultation bilaterally] Heart: [Regular rate and rhythm] Abdomen: [Soft, minimal appropriate tenderness, nondistended, bowel sounds positive] [Incisions: Healing well, no bleeding or discharge, no erythema present, skin glue covering incisions] A/P: [46]-year-old with [pelvic pain] status post [laparoscopic right-sided salpingectomy for hydrosalpinx with pelvic pain] POD #[1] * [Doing well] * [No concerns at this time] * Routine post op care * Monitor vitals * Anticipate discharge home [today] Mazin Stover MD 10:05 AM 08/12/17
--- NOTE | 2017-08-12 10:15 | PCM.DCSUM1 ---
Discharge Summary - Hospital Course Free Text/Narrative:: Lakeshia is a 46-year-old female who presents with complaints of severe and persistent pelvic pain since 08/08/17.She reports that she had sudden onset pain in her right lower quadrant of the abdomen and pelvis that began on Thursday evening, 08/08/17, at around 11:45 PM when she was awoken from her sleep. She went to the emergency department in [place] where they performed blood work and per her report the only abnormality was hypokalemia and she was given treatment for this. She reports that the pain has been persistent since that time and improved slightly yesterday going down to about a 5-6/10. She reports that the pain is in the right lower quadrant near her inguinal ligament and is sharp in nature with some cramping pain with some radiation to the right flank. She reports that the pain improved slightly with lying down. Pain is worse with ambulation. She reports that she had taken some Tylenol last evening with minimal relief. Reports the pain is a 9/10 in the office today. Reports that this feels different than her previous pain with her kidney stones following the hysterectomy. Reports she has a history of dyspareunia on the right side with insertion and deep thrusting. She reports that she has been having some chills but denies any fevers. Reports that she is having regular bowel movements with the last bowel movement yesterday. Denies any hematochezia. She is voiding without difficulty. Denies any hip pain. HPI Initial Comments: Lakeshia is a 46-year-old female who presents with complaints of severe and persistent pelvic pain since 08/08/17.She reports that she had sudden onset pain in her right lower quadrant of the abdomen and pelvis that began on Thursday evening, 08/08/17, at around 11:45 PM when she was awoken from her sleep. She went to the emergency department in [place] where they performed blood work and per her report the only abnormality was hypokalemia and she was given treatment for this. She reports that the pain has been persistent since that time and improved slightly yesterday going down to about a 5-6/10. She reports that the pain is in the right lower quadrant near her inguinal ligament and is sharp in nature with some cramping pain with some radiation to the right flank. She reports that the pain improved slightly with lying down. Pain is worse with ambulation. She reports that she had taken some Tylenol last evening with minimal relief. Reports the pain is a 9/10 in the office today. Reports that this feels different than her previous pain with her kidney stones following the hysterectomy. Reports she has a history of dyspareunia on the right side with insertion and deep thrusting. She reports that she has been having some chills but denies any fevers. Reports that she is having regular bowel movements with the last bowel movement yesterday. Denies any hematochezia. She is voiding without difficulty. Denies any hip pain. Brief History: 46-year-old with right-sided pelvic pain. - Discharge Data Discharge Date: 08/12/17 Discharge Disposition: Home, Self-Care 01 Condition: Good - Discharge Diagnosis/Problem(s) (1) Hydrosalpinx SNOMED Code(s): 07823060 ICD Code: N70.11 - CHRONIC SALPINGITIS Status: Acute Current Visit: Yes (2) Abdominal pain SNOMED Code(s): 70779167 ICD Code: R10.9 - UNSPECIFIED ABDOMINAL PAIN Status: Acute Current Visit : No (3) Postoperative pain SNOMED Code(s): 814976404 ICD Code: G89.18 - OTHER ACUTE POSTPROCEDURAL PAIN Status: Acute Current Visit: No (4) Type 2 diabetes mellitus SNOMED Code(s): 11162854 ICD Code: E11.9 - TYPE 2 DIABETES MELLITUS WITHOUT COMPLICATIONS Status: Acute Current Visit: No - Patient Summary/Data Operative Procedure(s) Performed: Laparoscopy with right salpingectomy and lysis of adhesions Complications: None Consults: Consultations 08/11/17 07:50 Consult to Diabetic Nurse Specialist [CONS] Routine Labs Pending at D/C: None Hospital Course: Patient was admitted for significant pelvic pain and had additional testing done. Blood work did not show any evidence of a current infection. She had a CT of the abdomen and pelvis that showed significant stool burden. She was treated with laxative medications and had several large bowel movements on the evening of hospital day #1 into the morning of hospital day #2. She continued to have significant pelvic pain. Discussed with patient that diagnostic laparoscopy with removal of abnormal structures was indicated. Patient consented to have the procedure. On hospital day #2 she had a diagnostic laparoscopy performed that showed pelvic adhesions and a right hydrosalpinx. A right-sided salpingectomy was performed without difficulty. Please see the operative note for full details. In the recovery she was having significant pain control issues and did not have any one that would be able to give her ride so she was kept overnight. On postoperative day #1 she was doing well and her pain was able to be controlled with oral medications. She was tolerating a regular diet. She was voiding without difficulty and passing flatus. She is ambulating without difficulty. She was not having any fevers or chills. She desired to be discharged home in the morning of postoperative day #1. She will follow up with Dr. Stover in the clinic in 2 weeks or earlier as needed. - Patient Instructions Diet: Diabetic Diet Activity: As Tolerated Driving: Do Not Drive (While taking narcotic pain medications) Showering/Bathing: May Shower Wound/Incision Care: Keep Operative Site/Wound Site Clean and Dry Notify Provider of: Fever, Increased Pain, Swelling and Redness, Drainage, Nausea and/or Vomiting - Discharge Plan Prescriptions/Med Rec: Docusate Sodium [Colace] 100 mg PO BID PRN #60 cap PRN Reason: Constipation Insulin Aspart [NovoLOG] See Protocol SUBCUT QIDACANDBED #7 pen Home Medications: Home Meds Chlorzoxazone [Parafon Forte] 500 mg PO BID 01/26/17 [History] Gabapentin 800 mg PO QID 01/26/17 [History] Insulin Glarg,Human.Rec.Analog [LantUS Solostar] 40 units SUBCUT BID 08/10/17 [ History] Omeprazole 40 mg PO BIDAC 08/10/17 [History] Sucralfate 1 gm PO BID 08/10/17 [History] Docusate Sodium [Colace] 100 mg PO BID PRN #60 cap 08/12/17 [Rx] Insulin Aspart [NovoLOG] See Protocol SUBCUT QIDACANDBED #1 box 08/12/17 [Rx] Magnesium Hydroxide [Milk of Magnesia] 30 ml PO BID PRN cup 08/12/17 [Rx] diphenhydrAMINE [Benadryl] 25 mg PO Q6H PRN cap 08/12/17 [Rx] Patient Handouts: Insulin Storage and Care, Insulin Treatment for Diabetes, Exploratory Laparotomy, Adult, Care After, Diabetes and Sick Day Management, Diabetic Nephropathy, Type 1 Diabetes Mellitus, Adult, Abdominal Pain, Adult, [id number], Exploratory Laparotomy, Adult Referrals: Mazin Stover MD [Primary Care Provider] - (Follow-up in 2 weeks for postop visit.) - Discharge Summary/Plan Comment DC Time >30 min.: No - Patient Data Vitals - Most Recent: Last Vital Signs Temp 36.7 C 08/12/17 07:37 Pulse 85 08/12/17 07:37 Resp 19 08/12/17 07:37 BP 135/78 08/12/17 07:37 Pulse Ox 96 08/12/17 07:37 Weight - Most Recent: 108.908 kg I&O - Last 24 hours: Intake & Output 08/11/17 08/12/17 08/12/17 22:59 06:59 14:59 Intake Total 1530 2900 1764 Output Total 400 3200 Balance 1130 -300 1764 Lab Results - Last 24 hrs: Laboratory Results - last 24 hr 08/11/17 08/11/17 08/11/17 Range/Units 11:14 16:45 20:26 POC Glucose 172 H 231 H 294 H (70-105) mg/dL 08/12/17 Range/Units 05:48 POC Glucose 202 H (70-105) mg/dL Med Orders - Current: Current Medications Acetaminophen (Tylenol) 650 mg PO Q6H PRN PRN Reason: Pain (Mild 1-3)/fever Diphenhydramine HCl (Benadryl) 25 mg PO Q6H PRN PRN Reason: Itching Last Admin: 08/11/17 21:30 Dose: 25 mg Docusate Sodium (Colace) 100 mg PO BID PRN PRN Reason: Constipation Gabapentin (Neurontin) 600 mg PO BID [facility] Last Admin: 08/12/17 08:37 Dose: 600 mg Gabapentin (Neurontin) 200 mg PO BID [facility] Last Admin: 08/12/17 08:37 Dose: 200 mg Hydromorphone HCl (Dilaudid) 0.25 mg IVPUSH Q2H PRN PRN Reason: Pain (severe 7-10) Last Admin: 08/11/17 05:23 Dose: 0.25 mg Insulin Aspart (Novolog) 0 unit SUBCUT QIDACANDBED [facility] PRN Reason: Protocol Last Admin: 08/12/17 06:53 Dose: 2 units Insulin Detemir (Levemir) 40 unit SUBCUT BID [facility] Last Admin: 08/12/17 08:37 Dose: 40 units Magnesium Hydroxide (Milk Of Magnesia) 30 ml PO BID PRN PRN Reason: Constipation Ondansetron HCl (Zofran Odt) 4 mg PO Q4H PRN PRN Reason: nausea, able to take PO Pantoprazole [facility] Last Admin: 08/12/17 06:53 Dose: 40 mg Chlorzoxazone [ Parafon Forte] 500 Mg 0 each PO BID [facility] Last Admin: 08/12/17 08:38 Dose: Not Given Sodium Chloride (Saline Flush) 10 ml FLUSH ASDIRECTED PRN PRN Reason: Keep Vein Open Sodium Chloride (Saline Flush) 10 ml FLUSH ASDIRECTED PRN PRN Reason: Keep Vein Open Sucralfate (Carafate) 1 gm PO BID [facility] Last Admin: 08/12/17 08:37 Dose: 1 gm Tramadol HCl (Ultram) 50 mg PO Q4H PRN PRN Reason: Pain Last Admin: 08/12/17 04:41 Dose: 50 mg Discontinued Medications Hydrocodone Bitart/Acetaminophen ([place] 325-5 Mg) 2 tab PO Q6H PRN PRN Reason: Pain (moderate 4-6) Last Admin: 08/10/17 21:57 Dose: 2 tab Bupivacaine HCl (Marcaine 0.5%) Confirm Administered Dose 30 ml .ROUTE .STK-MED ONE Stop: 08/11/17 10:11 Last Admin: 08/11/17 11:46 Dose: 10 ml Dexamethasone (Dexamethasone) Confirm Administered Dose 20 mg .ROUTE .STK-MED ONE Stop: 08/11/17 09:44 Diatrizoate Meglum/Diatrizoate Sod (Gastrografin 37%) 90 ml PO ONETIME ONE Stop: 08/10/17 13:33 Last Admin: 08/10/17 13:47 Dose: 90 ml Diphenhydramine HCl (Benadryl) 50 mg PO ONETIME ONE Stop: 08/10/17 12:58 Last Admin: 08/10/17 13:30 Dose: 50 mg Diphenhydramine HCl (Benadryl) 25 mg PO ONETIME ONE Stop: 08/10/17 18:16 Last Admin: 08/10/17 18:43 Dose: 25 mg Diphenhydramine HCl (Benadryl) Confirm Administered Dose 50 mg .ROUTE .STK-MED ONE Stop: 08/10/17 18:20 Last Admin: 08/10/17 18:38 Dose: Not Given Fentanyl (Sublimaze) Confirm Administered Dose 250 mcg .ROUTE .STK-MED ONE Stop: 08/11/17 09:44 Fentanyl (Sublimaze) 50 mcg IVPUSH Q5M PRN PRN Reason: Pain Stop: 08/11/17 12:36 Last Admin: 08/11/17 12:50 Dose: 50 mcg Fentanyl (Sublimaze) Confirm Administered Dose 100 mcg .ROUTE .STK-MED ONE Stop: 08/11/17 12:34 Last Admin: 08/11/17 12:38 Dose: 100 mcg Glycopyrrolate () Confirm Administered Dose 1 mg .ROUTE .STK-MED ONE Stop: 08/11/17 12:28 Hydromorphone HCl (Dilaudid) 0.5 mg IVPUSH Q15M PRN PRN Reason: severe pain Stop: 08/11/17 12:36 Last Admin: 08/11/17 13:44 Dose: 0.5 mg Hydromorphone HCl (Dilaudid) Confirm Administered Dose 0.5 mg .ROUTE .STK-MED ONE Stop: 08/11/17 12:33 Last Admin: 08/11/17 16:18 Dose: Not Given Lactated Ringer's (Ringers, Lactated) 1,000 mls @ 125 mls/hr IV ASDIRECTED [facility] Last Admin: 08/12/17 06:56 Dose: 125 mls/hr Sodium Chloride (Normal Saline) 100 mls @ 40 mls/hr IV ASDIRECTED [facility] Stop: 08/10/17 18:00 Last Admin: 08/10/17 13:47 Dose: 40 mls/hr Influenza Virus Vaccine (Pharmacy To Dose - Influenza Vaccine) 1 each IM ONETIME ONE Stop: 08/11/17 13:00 Influenza Virus Vaccine (Flulaval Quad [id number]) 60 mcg IM .ONCE ONE Stop: 08/10/17 13:16 Iopamidol (Isovue-300 (61%)) 100 ml IVPUSH ONETIME ONE Stop: 08/10/17 13:33 Last Admin: 08/10/17 13:47 Dose: 100 ml Ketorolac Tromethamine (Toradol) Confirm Administered Dose 30 mg .ROUTE .STK- MED ONE Stop: 08/11/17 12:32 Last Admin: 08/11/17 12:39 Dose: 30 mg Lidocaine HCl (Xylocaine 2%) Confirm Administered Dose 200 mg .ROUTE .STK-MED ONE Stop: 08/11/17 09:44 Magnesium Citrate (Citrate Of Magnesia) 300 ml PO ONETIME ONE Stop: 08/10/17 18:30 Last Admin: 08/10/17 18:49 Dose: 300 ml Magnesium Hydroxide (Milk Of Magnesia) 30 ml PO Q12H [facility] Last Admin: 08/10/17 20:04 Dose: Not Given Magnesium Hydroxide (Milk Of Magnesia) 30 ml PO BID [facility] Last Admin: 08/11/17 19:52 Dose: Not Given Magnesium Hydroxide (Milk Of Magnesia) 30 ml PO ONETIME ONE Stop: 08/10/17 16:19 Last Admin: 08/10/17 16:31 Dose: 30 ml Magnesium Hydroxide (Milk Of Magnesia) 30 ml PO ONETIME ONE Stop: 08/11/17 15:38 Last Admin: 08/11/17 16:05 Dose: 30 ml Methylprednisolone Sodium Succinate (Solu-Medrol) 40 mg IVPUSH ONETIME ONE Stop: 08/10/17 12:58 Last Admin: 08/10/17 13:27 Dose: 40 mg Midazolam HCl (Versed 1 Mg/Ml) Confirm Administered Dose 2 mg .ROUTE .STK-MED ONE Stop: 08/11/17 09:44 Midazolam HCl (Versed 1 Mg/Ml) Confirm Administered Dose 2 mg .ROUTE .STK-MED ONE Stop: 08/11/17 12:46 Last Admin: 08/11/17 12:51 Dose: 2 mg Neostigmine Methylsulfate (Neostigmine) Confirm Administered Dose 5 mg .ROUTE .STK-MED ONE Stop: 08/11/17 12:28 Ondansetron HCl (Zofran) Confirm Administered Dose 4 mg .ROUTE .STK-MED ONE Stop: 08/11/17 09:44 Ondansetron HCl (Zofran) Confirm Administered Dose 4 mg .ROUTE .STK-MED ONE Stop: 08/11/17 13:34 Last Admin: 08/11/17 12:42 Dose: 4 mg Oxycodone/Acetaminophen (Percocet 325-5 Mg) 2 tab PO Q6H PRN PRN Reason: Pain (moderate 4-6) Last Admin: 08/10/17 16:23 Dose: 2 tab Oxycodone/Acetaminophen (Percocet 325-5 Mg) 2 tab PO Q6H PRN PRN Reason: Pain (moderate 4-6) Last Admin: 08/11/17 16:02 Dose: 2 tab Pneumococcal Polyvalent Vaccine (Pneumovax 23) 0.5 ml IM .ONCE ONE Stop: 08/10/17 13:00 Propofol (Diprivan 20 Ml) Confirm Administered Dose 400 mg .ROUTE .STK-MED ONE Stop: 08/11/17 10:11 Rocuronium [place] (Zemuron) Confirm Administered Dose 50 mg .ROUTE .STK-MED ONE Stop: 08/11/17 09:44 Sodium Chloride (Saline Flush) 10 ml FLUSH ONETIME ONE Stop: 08/10/17 13:33 Last Admin: 08/10/17 13:47 Dose: 10 ml *Q Meaningful Use (DIS) - VTE *Q VTE Criteria *Q: - Stroke *Q Stroke Criteria *Q: - AMI *Q AMI Criteria *Q:
== END 2017-08-12 11:25 | disposition home or self-care (01) ==
LOC: JD.MS 11:46
PROVIDERS: ADMIT Obstetrics & Gynecology; ATTEND Obstetrics & Gynecology
DX: N70.11 Chronic salpingitis (principal); Z88.8 Allergy status to other drugs, medicaments and biological substances; Z91.040 Latex allergy status; Z91.041 Radiographic dye allergy status; E11.9 Type 2 diabetes mellitus without complications; Z98.890 Other specified postprocedural states; R10.2 Pelvic and perineal pain
CPT/HCPCS: 36415; 58661; 74177; 80053; 81001; 82962; 85025; 96361; 96374; 96375; 96376; A9270; G0008; G0009; G0378; G0379; J1100; J1170; J1815; J1885; J2250; J2405; J2710; J2920; J3010; J7030; J7050; J7120; Q9967; 00840; 90686; 90732; J2704